=== PATIENT | female | born 1975 | race Caucasian/White ===

== ENCOUNTER 2021-08-18 18:25 | Emergency (ER) | payer SELFPAY ==
[2021-08-18 19:36] VITALS: BP 116/71; PULSE 83; RESP 19; TEMP 36.7; O2SAT 99; BMI 56.5
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
[2021-08-18 20:04] VITALS: BP 122/54; PULSE 80; RESP 20; TEMP 36.7; O2SAT 98
== END 2021-08-18 20:08 | disposition home or self-care (01) ==
PROVIDERS: Emergency Provider Student in an Organized Health Care Education/Training Program; PCP Family Medicine
DX: G89.29 Other chronic pain (principal); M25.522 Pain in left elbow; M54.2 Cervicalgia
CPT/HCPCS: 99281

== ENCOUNTER → 2021-09-22 07:40 | Outpatient (CLI) | payer BC, SELFPAY ==
[2021-09-22 08:12] LABS: Basophils % 0.6 % (0.1-2.0); Eosinophils # 0.2 K/mm3 (0.0-0.4); Eosinophils % 3.1 % (0.1-12.0); Hematocrit 41.2 % (37.0-47.0); Hemoglobin 13.7 g/dL (12.2-16.2); Lymphocytes # 1.8 K/mm3 (0.7-4.5); Mean Corpuscular HGB Conc 33.3 g/dL (31.8-35.4); Mean Corpuscular Hemoglobin 28.5 pg (27.0-31.2); Mean Corpuscular Volume 85.5 fl (81-99); Mean Platelet Volume 8.1 fl (7.4-10.4); Monocytes # 0.3 K/mm3 (0.1-1.0); Monocytes % 5.2 % (1.7-9.3); Neutrophils # 3.6 K/mm3 (1.8-7.8); Neutrophils % 60.1 % (37.0-80.0); Platelet Count 310 K/mm3 (142-424); Red Blood Count 4.82 M/mm3 (4.20-5.40); Red Cell Distribution Width 13.5 % (11.5-17.5); White Blood Count 5.9 K/mm3 (4.8-10.8)
[2021-09-22 10:07] LABS: Chloride 103 mmol/L (98-107); Sodium 142 mmol/L (136-145)
[2021-09-22 10:08] LABS: Potassium 4.1 mmoL/L (3.5-5.1)
[2021-09-22 10:10] LABS: Alanine Aminotransferase 11 U/L (12-78); Albumin Level 3.9 g/dl (3.5-5.0); Albumin/Globulin Ratio 1.3 (1.1-1.8); Alkaline Phosphatase 88 U/L (38-126); Anion Gap 13.1 mEq/L (5-15); Aspartate Amino Transferase 25 U/L (14-36); Bilirubin,Total 0.4 mg/dl (0.2-1.3); Blood Urea Nitrogen 12 mg/dl (7-17); Carbon Dioxide 30 mmol/L (22.0-30.0); Estimated Glomerular Filt Rate 77 ml/min (>60); GFR (African American) 93 ML/MIN (>60); Globulin 2.9 g/dL (1.3-3.2); Total Protein,Serum 6.8 g/dl (6.3-8.2)
[2021-09-22 10:11] LABS: Calcium 9.1 mg/dl (8.4-10.2); Chol/HDL Ratio 3.5 (1-3.5); Cholesterol 166 mg/dl (140-200); Glucose 112 mg/dl (74-100); HDL Cholesterol 47 mg/dl (40-60); Triglycerides 99 mg/dl (30-150); VLDL Cholesterol 20 mg/dL (0-40)
[2021-09-22 10:22] LABS: Direct LDL Cholesterol 95.66 mg/dL (100-129)
[2021-09-22 10:43] LABS: Thyroid Stimulating Hormone 1.94 uIU/mL (0.465-4.68)
[2021-09-22 11:10] LABS: Uric Acid 6.3 mg/dl (2.5-6.2)
== END ==
PROVIDERS: Visit Provider Family Medicine
DX: I10 Essential (primary) hypertension (principal)
CPT/HCPCS: 36415; 80053; 80061; 84443; 84550; 85025

== ENCOUNTER → 2021-09-24 09:44 | Outpatient (CLI) | payer BC, SELFPAY ==
[2021-09-24 10:15] LABS: Creatinine,Urine Random 104 mg/dL (Not Estab.)
[2021-09-24 10:18] LABS: Microalbumin/Creatinine Ratio 5.8
== END ==
PROVIDERS: Visit Provider Family Medicine
DX: I10 Essential (primary) hypertension (principal)
CPT/HCPCS: 82043; 82570

== ENCOUNTER → 2021-10-20 08:23 | Outpatient (CLI) | payer BC, SELFPAY ==
--- NOTE | 2021-10-20 08:27 | MM_ITS ---
PROCEDURE INFORMATION: Exam: MG Bilateral Screening 3D Mammography Exam date and time: 10/20/2021 8:27 AM Age: 46 years old Clinical indication: Encounter for screening mammogram for malignant neoplasm of breast TECHNIQUE: Imaging protocol: Bilateral screening tomosynthesis and 2D mammography including computer-aided detection (CAD) when performed. COMPARISON: No relevant prior studies available. FINDINGS: MAMMOGRAPHY: Breast composition: The breast tissue is composed of scattered areas of fibroglandular density. Mass: 0.4cm mass in the middle third of the left upper outer quadrant Architectural distortion: None. Calcifications: No suspicious calcifications. Asymmetric density: None. Skin thickening: None. Axillary adenopathy: None. IMPRESSION: Patient to be recalled for spot compression views of the left breast in the CC and MLO projections, a full 90 degree lateral view, and left breast ultrasound for further evaluation of a left breast mass. ASSESSMENT: BI-RADS Category 0: Incomplete- Need Additional Imaging Evaluation and/or Prior Mammograms for Comparison
== END ==
PROVIDERS: PCP Family Medicine; Visit Provider Family Medicine
DX: Z12.31 Encounter for screening mammogram for malignant neoplasm of breast (principal)
CPT/HCPCS: 77063; 77067

== ENCOUNTER → 2021-11-03 11:16 | Outpatient (CLI) | payer OTHER, SELFPAY | PROVIDERS: PCP Family Medicine; Visit Provider Nurse Practitioner | DX: U07.1 COVID-19 (principal) | CPT/HCPCS: C9803; U0003; U0005 ==

== ENCOUNTER → 2021-11-15 13:55 | Outpatient (CLI) | payer OTHER, SELFPAY ==
--- NOTE | 2021-11-15 14:02 | US_ITS ---
PROCEDURE INFORMATION: Exam: US Left Breast, Complete Exam date and time: 11/15/2021 2:02 PM Age: 46 years old Clinical indication: Patient recalled for further evaluation of a left breast mass TECHNIQUE: Imaging protocol: Complete ultrasound of all four quadrants of the Left breast and the retroareolar regions, including ultrasound of the axilla when performed. COMPARISON: MG MM DIG SCREENING MAMM BI W/CAD 10/20/2021 8:24 AM FINDINGS: Breast: Sonographic images of the left breast including the retroareolar region, all 4 quadrants and the axilla do not demonstrate any solid masses. 0.3 cm cyst in the 3 o'clock axis 3 cm from the nipple most closely corresponds to the mass on mammography. No architectural distortion or acoustical shadowing. No skin thickening or axillary adenopathy. It should be noted that there is a typographical error in the sonographic images, in that, image number 9 should be labeled left upper inner quadrant. IMPRESSION: Mass on screening mammography corresponds to underlying cystic change sonographically. There is no mammographic evidence of malignancy.Annual bilateral mammographic screening is recommended unless otherwise clinically indicated. ASSESSMENT: BI-RADS Category 2: Benign
--- NOTE | 2021-11-15 14:02 | MM_ITS ---
PROCEDURE INFORMATION: Exam: MG Left Diagnostic Breast Tomosynthesis Exam date and time: 11/15/2021 2:02 PM Age: 46 years old Clinical indication: Patient recalled for further evaluation of a left breast mass TECHNIQUE: Imaging protocol: Left Diagnostic tomosynthesis and 2D mammography including computer-aided detection (CAD) when performed. Unilateral or bilateral exam. COMPARISON: 1. MG MM DIG SCREENING MAMM BI W/CAD 10/20/2021 8:24 AM 2. MG MM scrn mammo BI 08/03/2020 3:40 PM FINDINGS: MAMMOGRAPHY: Digital diagnostic spot compression views of the left upper outer quadrant and 90 degree lateral view of the left breast demonstrates a persistent 0.4 cm mass without associated architectural distortion. Sonography performed 11/15/2021 demonstrated a benign cyst IMPRESSION: Mass on screening mammography corresponds to underlying cystic change sonographically. There is no mammographic evidence of malignancy.Annual bilateral mammographic screening is recommended unless otherwise clinically indicated. ASSESSMENT: BI-RADS Category 2: Benign
== END ==
PROVIDERS: PCP Family Medicine; Visit Provider Family Medicine
DX: R92.8 Other abnormal and inconclusive findings on diagnostic imaging of breast (principal)
CPT/HCPCS: 76641; 77061; 77065; G0279

== ENCOUNTER → 2021-12-21 08:14 | Outpatient (CLI) | payer OTHER, SELFPAY | PROVIDERS: PCP Family Medicine; Visit Provider Nurse Practitioner | DX: U07.1 COVID-19 (principal) | CPT/HCPCS: C9803; U0003; U0005 ==

== ENCOUNTER 2022-01-16 14:43 | Emergency (ER) | payer OTHER, SELFPAY ==
[2022-01-16 16:20] VITALS: BP 141/89; PULSE 84; RESP 19; TEMP 36.7; O2SAT 97; BMI 48.6
--- NOTE | 2022-01-16 16:41 | HMH.EDUTC ---
[facility] [place] Disposition Clinical Impression: Sinusitis Qualifiers: Sinusitis location: maxillary Chronicity: acute Recurrence: non-recurrent Qualified Code(s): J01.00 - Acute maxillary sinusitis, unspecified Disposition: Home, Self-Care Condition on Discharge: Good Instructions: DI for Sinusitis Additional Instructions: Start antibiotic patient to take as ordered for a full length of time even if you feel better. Sinus infections do not get better overnight. It may take 2-3 days to notice much improvement so be sure to use conservative measures as discussed for symptoms. Flonase 1 spray each nostril daily to help with nasal congestion, sinus and ear pressure/information Increase fluids Humidifier/vaporizer as needed Tylenol and ibuprofen as needed for fever or pain. If symptoms do not improve or get worse return or be seen in the ER Follow-up with primary care this week Prescriptions: cephALEXin [Cephalexin 500mg Tab] 500 mg PO BID 7 Days #14 tab Transmission Status: Pending to [id number] Fluticasone Propionate [Flonase 50mcg nasal spray 16gm] 1 spr NS DAILY 14 Days #9.9 ml Transmission Status: Pending to [id number] Referrals: David Snell MD [Primary Care Provider] - Time of Disposition: 16:50 Medical Decision Making - Melvin Inquiry Pt receiving controlled substance: No Vital Signs: 01/16/22 16:20 Temperature 98.0 F Temperature Source Oral Pulse Rate [Right Brachial] 84 Respiratory Rate 19 Blood Pressure [Right Arm] 141/89 H Blood Pressure Mean [Right Arm] 106 Blood Pressure Source [Right Arm] Automatic Cuff Blood Pressure Position [Right Arm] Sitting 02 Sat by Pulse Oximetry 97 Oxygen Delivery Method Room Air [facility] [place] HPI - General Chief complaint: Urgent Treatment [facility] Stated complaint: Sore throat, sinus pressure, congestion Time Seen by Provider: 01/16/22 16:41 Mode of Arrival: Ambulatory Source of Information: Patient Limitations: No Limitations Description of Symptoms (Recalled from Triage Doc. by RN): PATIENT C/O CONGESTION AND SINUS PRESSURE/PAIN X 3 DAYS HEENT Symptoms (Recalled from RN notes): Yes Resp Symptoms (Recalled from RN notes): No Skin Symptoms (Recalled from RN notes): No MS Symptoms (Recalled from RN notes): No Functional Status (Recalled from RN notes): WNL - History of Present Illness Provider Complaint: 47 yr old female presents for green nasal drainage, sinus pressure, sinus pain and sore throat. - Related Data Home Medications Medication Instructions Recorded Confirmed Hydroxychloroquine Sulfate 100 mg PO BID 08/18/21 08/18/21 Previous Rx's Medication Instructions Recorded methocarbamoL [Methocarbamol] 750 mg PO TID #20 tab 08/18/21 Fluticasone Propionate [Flonase 1 spr NS DAILY 14 Days #9.9 ml 01/16/22 50mcg nasal spray 16gm] cephALEXin [Cephalexin 500mg Tab] 500 mg PO BID 7 Days #14 tab 01/16/22 Allergies Allergy/AdvReac Type Severity Reaction Status Date / Time Yeast Allergy Verified 08/18/21 19:42 - Worker's Comp Is this a Worker's Comp case?: No [facility] History - Hepatitis A Screen Drug use history?: No High risk sexual behaviors?: No History of sexually transmitted infection?: No Currently employed?: No Childcare worker?: No Do you have indoor plumbing?: Yes Do you have electricity?: Yes Attestation statement:: This patient has been screened for Hepatitis A risk factors. I have reviewed the patient's past medical history: Yes ROS Obtained: Yes Systems reviewed as appropriate & no additional complaints - Constitutional Constitutional: Reports system reviewed and no additional complaints, except as docu, Denies fever(s) - Eyes Eyes: Reports system reviewed and no additional complaints, except as docu, Denies dry eyes - ENT Ears, Nose, Mouth, and Throat: Reports system reviewed and no additional complaints, except as docu, Reports nasal congestion, Reports nasal discharge, Reports sinus pain, Reports sinus p
[2022-01-16 16:55] VITALS: BP 141/89; PULSE 84; RESP 19; TEMP 36.7; O2SAT 97
== END 2022-01-16 17:01 | disposition home or self-care (01) ==
PROVIDERS: Emergency Provider Nurse Practitioner Family; PCP Family Medicine
DX: J01.00 Acute maxillary sinusitis, unspecified (principal); J02.9 Acute pharyngitis, unspecified; Z79.51 Long term (current) use of inhaled steroids; Z79.899 Other long term (current) drug therapy; Z91.048 Other nonmedicinal substance allergy status
CPT/HCPCS: 99213; G0463

== ENCOUNTER 2022-01-25 09:02 | Emergency (ER) | payer OTHER, SELFPAY ==
[2022-01-25 09:26] VITALS: BP 139/84; PULSE 101; RESP 19; TEMP 36.8; O2SAT 99; BMI 51.0
[2022-01-25 09:37] LABS: UTC Influenza A Antigen Positive (Negative); UTC Influenza B Antigen Negative (Negative)
--- NOTE | 2022-01-25 09:52 | HMH.EDUTC ---
[facility] [place] Disposition Clinical Impression: Influenza Disposition: Home, Self-Care Condition on Discharge: Good Instructions: How to Avoid a Cold or Flu, Influenza, DI for Influenza -- Adult Additional Instructions: ? Start Tamiflu today if you are going to take it. Discussed risk and possible benefits. ? Too late to start Tamiflu. Most effective when started within 48 hours of symptoms onset ? Lots of rest ? Increase Fluids water, Gatorade, powerade, pedialyte,if infant/toddler/child ? Alternate Tylenol and / or ibuprofen as discussed for fever, aches, chills Follow up IMMEDIATELY with your family doctor for new or worsening Symptoms OR no noticeable improvement over the next 48-72 hours, 911 for difficulty or breathing ? You or your child area contagious until no fever, aches, chills for 24 hours with medication for symptoms ? Help Prevent the spread of influenza: ? Wash your hands often. Use soap and water. Wash your hands after you use the bathroom, change a child's diapers, or sneeze. Wash your hands before you prepare or eat food. Use gel hand cleanser that has 60% alcohol, when soap and water are not available. Do not touch your eyes, nose, or mouth unless you have washed your hands first. ? Cover your mouth when you sneeze or cough. Cough into a tissue or the bend of your arm. If you use a tissue, throw it away immediately and wash your hands. ? Clean shared items with a germ-killing spinneret cleaner. Clean table surfaces, doorknobs, and light switches. Do not share towels, silverware, and dishes with people who are sick. Wash bed sheets, towels, silverware, and dishes with soap and water. ? Wear a mask over your mouth and nose if you are sick. The face mask may help protect others from becoming infected with the flu. Wear the mask when in common areas of your home or if you seek care with a healthcare provider. ? Stay away from others if you are sick. Stay at home until 24 hours after your fever and symptoms are gone. Prescriptions: Oseltamivir Phosphate [Tamiflu 75mg Capsule] 75 mg PO BID #10 cap Transmission Status: Pending to [id number] Referrals: David Snell MD [Primary Care Provider] - As needed Time of Disposition: 10:29 Medical Decision Making - Melvin Inquiry Pt receiving controlled substance: No Melvin was queried for this patient: No Vital Signs: 01/25/22 09:26 Temperature 98.3 F Temperature Source Oral Pulse Rate [Left] 101 H Respiratory Rate 19 Blood Pressure [Right Arm] 139/84 Blood Pressure Mean [Right Arm] 102 02 Sat by Pulse Oximetry 99 - Lab Data Lab results reviewed: Yes: I reviewed the patient's lab results. Lab Results 01/25/22 09:19: Influenza Type A Ag Positive A, Influenza Type B Ag Negative 01/25/22 09:57: Group A Strep Rapid Negative Orders (Tests/Meds): ORDERS Category Date Time Status Strep Screen Confirmation Stat Micro 01/25/22 09:57 Received [facility] [place] HPI - General Stated complaint: sore throat, chills, bodyaches, congestion Time Seen by Provider: 01/25/22 09:52 Mode of Arrival: Ambulatory Source of Information: Patient Limitations: No Limitations Description of Symptoms (Recalled from Triage Doc. by RN): pt c/o a sore throat, congestion, body aches, and chills x3 days. HEENT Symptoms (Recalled from RN notes): Yes Resp Symptoms (Recalled from RN notes): No Skin Symptoms (Recalled from RN notes): No MS Symptoms (Recalled from RN notes): No Functional Status (Recalled from RN notes): wnl - History of Present Illness Provider Complaint: Patient states that she has not felt well for about 3 days States that she has been having fever, chills and body aches along with sore throat States that today she was still feeling bad so she wanted to come in and get tested for strep and flu - Related Data Home Medications Medication Instructions Recorded Confirmed Hydroxychloroquine Sulfate 100 mg PO BID 08/18/21 08/18/21 Previous Rx's Medication Instructions
[2022-01-25 10:24] LABS: Strep Scrn Group A (Rapid) Negative (Negative)
[2022-01-25 10:52] VITALS: BP 139/84; PULSE 101; RESP 19; TEMP 36.8
== END 2022-01-25 10:53 | disposition home or self-care (01) ==
PROVIDERS: Emergency Provider Nurse Practitioner; PCP Family Medicine
DX: J10.1 Influenza due to other identified influenza virus with other respiratory manifestations (principal)
CPT/HCPCS: 87430; 87804; 99212; G0463

== ENCOUNTER 2022-03-16 14:21 | Emergency (ER) | payer BC, SELFPAY ==
[2022-03-16 14:22] VITALS: BP 135/66; PULSE 84; RESP 18; TEMP 36.8; O2SAT 96; BMI 51.6
--- NOTE | 2022-03-16 14:25 | PC.NURSE ---
feder[facility] hands cleaned with hibiclens upon arrival to ED
[2022-03-16 15:15] VITALS: BMI 51.6
--- NOTE | 2022-03-16 16:32 | XR_ITS ---
PROCEDURE INFORMATION: Exam: XR Left Hand Exam date and time: 03/16/2022 4:32 PM Age: 47 years old Clinical indication: Injury or trauma; Other: Dog bite; Puncture; Hand; Left; Additional info: Assess for retained fb TECHNIQUE: Imaging protocol: XR Left hand. Views: 3 or more views. COMPARISON: No relevant prior studies available. FINDINGS: Bones/joints: Osseous anatomic alignment is well preserved. No acutely displaced fracture or dislocation. Joint spaces are well preserved. Soft tissues: There is soft tissue swelling. There is no evidence of a radio-opaque foreign body. IMPRESSION: 1. No acute skeletal pathology. 2. No retained radiopaque foreign bodies.
--- NOTE | 2022-03-16 16:32 | XR_ITS ---
PROCEDURE INFORMATION: Exam: XR Right Hand Exam date and time: 03/16/2022 4:31 PM Age: 47 years old Clinical indication: Injury or trauma; Other: Dog bite; Puncture; Hand; Right; Additional info: Assess for fb TECHNIQUE: Imaging protocol: XR Right hand. Views: 3 or more views. COMPARISON: No relevant prior studies available. FINDINGS: Bones/joints: Osseous anatomic alignment is well preserved. No acutely displaced fracture or dislocation. Joint spaces are well preserved. Soft tissues: There is soft tissue swelling. There is no evidence of a radio-opaque foreign body. IMPRESSION: 1. No acute skeletal pathology. 2. No retained radiopaque foreign bodies.
[2022-03-16 18:01] VITALS: BP 111/68; PULSE 73; O2SAT 99
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
[2022-03-16 18:30] VITALS: BP 107/63; PULSE 72; O2SAT 100
[2022-03-16 18:47] VITALS: BP 132/74; PULSE 78; RESP 16; TEMP 36.6; O2SAT 98
== END 2022-03-16 18:49 | disposition home or self-care (01) ==
PROVIDERS: Emergency Provider Emergency Medicine; PCP Family Medicine
DX: S61.431A Puncture wound without foreign body of right hand, initial encounter (principal); S61.235A Puncture wound without foreign body of left ring finger without damage to nail, initial encounter; W54.0XXA Bitten by dog, initial encounter; Z23 Encounter for immunization
CPT/HCPCS: 73130; 90715; 99283

== ENCOUNTER → 2022-11-21 07:59 | Outpatient (CLI) | payer BC, SELFPAY ==
--- NOTE | 2022-11-21 08:06 | MM_ITS ---
PROCEDURE INFORMATION: Exam: MG Bilateral Screening 3D Mammography Exam date and time: 11/21/2022 7:57 AM Age: 47 years old Clinical indication: Screening examination TECHNIQUE: Imaging protocol: Bilateral Screening tomosynthesis and 2D mammography including computer-aided detection (CAD) when performed. COMPARISON: 1. MG MM DIG MAMM DX UNILAT LT CAD 11/15/2021 2:03 PM 2. MG MM DIG SCREENING MAMM BI W/CAD 10/20/2021 8:24 AM FINDINGS: MAMMOGRAPHY: Breast composition: The breasts are almost entirely fatty. Mass: None. Architectural distortion: None. Calcifications: No suspicious calcifications. Asymmetric density: None. Skin thickening: None. Axillary adenopathy: None. IMPRESSION: No mammographic evidence of malignancy. Annual screening is recommended unless otherwise clinically indicated. ASSESSMENT: BI-RADS Category 1: Negative
== END ==
PROVIDERS: PCP Family Medicine; Visit Provider Family Medicine
DX: Z12.31 Encounter for screening mammogram for malignant neoplasm of breast (principal)
CPT/HCPCS: 77063; 77067

== ENCOUNTER 2023-01-30 08:04 | Emergency (ER) | payer BC, SELFPAY ==
[2023-01-30 08:20] VITALS: BP 140/91; PULSE 88; RESP 20; TEMP 37.2; O2SAT 95; BMI 51.5
--- NOTE | 2023-01-30 08:33 | EXP.UTC ---
Discharge Plan Disposition Patient Disposition: Home, Self-Care Condition: Good Prescriptions Prescriptions: New benzonatate [benzonatate] 100 mg capsule 100 mg PO TIDP PRN (Reason: Cough) Qty: 30 0RF methylprednisolone 4 mg Tablets,Dose Pack 4 mg PO DIRECTED Qty: 21 0RF amoxicillin-pot clavulanate 875-125 mg Tablet 1 tab PO Q12H Qty: 20 0RF fluticasone propionate [fluticasone propionate] 50 mcg/actuation spray,suspension 2 spr intranasal DAILY 30 Days Qty: 120 5RF No Action citalopram 10 mg tablet 10 mg PO DAILY losartan 25 mg tablet 25 mg PO DAILY hydroxychloroquine 100 mg tablet 200 mg PO BID Referrals Follow up/Referrals: David Snell MD [Primary Care Provider] - See instructions Activity Restrictions/Add. Instructions Additional Instructions/Restrictions: Drink plenty of fluids. Take tylenol or ibuprofen for pain or fever. Take the medications as directed. Follow up with your regular doctor. GO TO THE ER FOR ANY WORSENING SYMPTOMS Don't start the oral steroids until tomorrow, since you had the shot here today. Clinical Impressions Clinical Impression: Sinusitis Stand Alone Forms Stand Alone Forms: Work/School Release Instructions Patient Instructions: Sinusitis, DI for Sinusitis Discharge ED Provider: Mike Laird [facility] General Stated complaint: Cough,Congestion Mode of Arrival: Ambulatory Source of Information: Patient Limitations: No Limitations Time Seen by Provider: 01/30/23 08:33 Description of Symptoms (Recalled from Triage Doc. by RN): allergy symptoms, and cold HEENT Symptoms (Recalled from RN notes): Yes Resp Symptoms (Recalled from RN notes): No Skin Symptoms (Recalled from RN notes): No MS Symptoms (Recalled from RN notes): No Functional Status (Recalled from RN notes): n/a History of Present Illness Provider Complaint: She states that for the past 1 week she has had worsening sinus congestion, sinus drainage and sinus pressure. Related Data Home Medications Medication Instructions Recorded Confirmed citalopram 10 mg tablet 10 mg PO DAILY . 06/23/22 01/30/23 hydroxychloroquine 100 mg tablet 200 mg PO BID . 06/23/22 01/30/23 losartan 25 mg tablet 25 mg PO DAILY . 06/23/22 01/30/23 Previous Rx's Medication Instructions Recorded amoxicillin 875 mg-potassium 1 tab PO Q12H #20 tabs 01/30/23 clavulanate 125 mg tablet benzonatate 100 mg capsule 100 mg PO TIDP PRN Cough #30 caps 01/30/23 fluticasone propionate 50 2 spr intranasal DAILY 30 days 01/30/23 mcg/actuation nasal #120 ea spray,suspension methylprednisolone 4 mg tablets in 4 mg PO DIRECTED #21 tabs 01/30/23 a dose pack Allergies Allergy/AdvReac Type Severity Reaction Status Date / Time Yeast Allergy Verified 01/30/23 08:34 Worker's Comp Is this a Worker's Comp case?: No [facility] Disclaimer: The information contained in this section may have been updated after the patient was seen, as this information can be updated by other users. Medical History Depression Surgical History Hx of section Family History Grandmother Diabetes Social History Smoking Status: Never smoker alcohol intake: never current occupational status: employed Travel in the last 8 weeks: None ROS Obtained: Yes All systems reviewed & no additional complaints except as documented Constitutional Constitutional: Reports poor appetite Eyes Eyes: Reports system reviewed and no additional complaints, except as documented ENT Ears, Nose, Mouth, and Throat: Reports as per HPI Cardiovascular Cardiovascular: Reports system reviewed and no additional complaints, except as documented and Denies chest pain Respiratory Respiratory: Denies
[2023-01-30 09:03] VITALS: BP 140/91; PULSE 88; RESP 20; TEMP 37.2; O2SAT 95
== END 2023-01-30 09:02 | disposition home or self-care (01) ==
PROVIDERS: Emergency Provider Nurse Practitioner Family; PCP Family Medicine
DX: J01.90 Acute sinusitis, unspecified (principal); R05.1 Acute cough
CPT/HCPCS: 99212; 99214; G0463

== ENCOUNTER 2024-03-13 07:55 | Outpatient (CLI) | payer BC, SELFPAY ==
--- NOTE | 2024-03-13 08:04 | MM_ITS ---
PROCEDURE INFORMATION: Exam: MG Bilateral Screening 3D Mammography Exam date and time: 03/13/2024 7:52 AM Age: 49 years old Clinical indication: Screening examination TECHNIQUE: Imaging protocol: Bilateral Screening tomosynthesis and 2D mammography including computer-aided detection (CAD) when performed. COMPARISON: 1. MG MM DIG SCREENING MAMM BI W/CAD 11/21/2022 7:57 AM 2. MG MM DIG MAMM DX UNILAT LT CAD 11/15/2021 2:03 PM FINDINGS: MAMMOGRAPHY: Breast composition: The breasts are almost entirely fatty. Mass: None. Architectural distortion: None. Calcifications: No suspicious calcifications. Asymmetric density: None. Skin thickening: None. Axillary adenopathy: None. IMPRESSION: No mammographic evidence of malignancy. Annual screening is recommended unless otherwise clinically indicated. ASSESSMENT: BI-RADS Category 1: Negative
== END 2024-03-13 23:59 | disposition home or self-care (01) ==
LOC: RAD 07:56
PROVIDERS: PCP Family Medicine; Visit Provider Family Medicine
DX: Z12.31 Encounter for screening mammogram for malignant neoplasm of breast (principal)
CPT/HCPCS: 77063; 77067

== ENCOUNTER 2025-01-01 07:42 | Day surgery (SDC) | payer BC, SELFPAY ==
[2024-12-31 10:08] VITALS: BMI 45.0
[2025-01-01] MEDS: LACTATED RINGERS 1000ML 1,000 ML 50 ML IV (08:19)
[2025-01-01 08:27] VITALS: BP 121/71; PULSE 92; RESP 18; TEMP 36.3; O2SAT 97
--- NOTE | 2025-01-01 09:04 | P.HP_ITS ---
History of Present Illness *Admission Date: 01/01/25 *Reason for visit:: Screening *History of present illness: Mrs. Aldana is a 49-year-old female who is here for screening colonoscopy. The examination is deemed medically necessary for screening colonoscopy. The patient has been seen, interviewed and examined prior to the procedure by both myself and the anesthesia provider. [facility] Disclaimer: The information contained in this section may have been updated after the patient was seen, as this information can be updated by other users. Medical History Depression Surgical History Hx of section Family History Grandmother Diabetes Social History Smoking Status: Never smoker alcohol intake: never current occupational status: employed Travel in the last 8 weeks: None Have you lived/traveled outside US in past 30 days?: No Contact w/someone who lives/traveled outside US past 30 days?: No Exposure to someone with infectious disease in past 14 days?: No Do you have a fever (greater than 100.4 F or 38 C)?: No Have you tested positive for COVID-19: No Exposed to someone with COVID-19 in past 14 days?: No Do you have a sore throat?: No Do you have a cough?: No Do you have any weakness?: No Do you have any diarrhea?: No Are you experiencing any unusual bleeding?: No Do you have any muscle aches/pain?: No Do you have any abdominal pain?: No Are you experiencing loss of taste or smell?: No Other Medical History Have you received the Flu Vaccine for this season: No Have you received the Pneumonia Vaccine: No Review of Systems Review of Systems Review of systems (narrative): Negative *Cardiovascular Comments: Negative *Gastrointestinal Comments: Negative *Genitourinary Comments: Negative *Musculoskeletal Comments: Negative *Neurologic Comments: Negative Meds Home Medications and Allergies Home Medications ?Medication ?Instructions ?Recorded ?Confirmed ?Type hydroxychloroquine 100 mg tablet 200 mg PO BID . 06/23/22 01/01/25 History losartan 25 mg tablet 25 mg PO DAILY . 06/23/22 01/01/25 History duloxetine 20 mg capsule,delayed 20 mg PO DAILY 01/01/25 01/01/25 History release sprinkle semaglutide (weight loss) 1 mg/0.5 1 mg SQ Q7D 01/01/25 01/01/25 History mL subcutaneous pen injector (Wegovy) New Prescriptions to Start Prescriptions: Allergies Allergy/AdvReac Type Severity Reaction Status Date / Time Yeast Allergy Rash Verified 01/01/25 08:23 Exam Data for Last 24 hours Vital signs and Labs for Last 24 Hours: Temp Pulse Resp BP Pulse Ox O2 Del Method 97.4 F L 92 H 18 121/71 97 Room Air 01/01/25 08:27 01/01/25 08:27 01/01/25 08:27 01/01/25 08:27 01/01/25 08:27 01/01/25 08:27 I & O for Last 24 hours: Intake & Output 12/29/24 12/30/24 12/31/24 01/01/25 23:59 23:59 23:59 23:59 Weight 279 lb *Routine HEENT Exam Head: Present normocephalic Eye: Present EOMI and PERRL ENT: Present mucous membranes moist *Routine Neck Exam Neck: Present supple *Routine Respiratory Exam Respiratory: Present CTA bilaterally *Routine Cardiovascular Exam Cardiovascular: Present RRR *Routine Abdominal Exam Abdominal: Present soft and normoactive bowel sounds; Absent tenderness *Routine Rectal Exam Rectal:: deferred *Routine Genitalia Exam Genitalia:: deferred *Routine Extremities Exam Extremities: Absent cyanosis, clubbing or edema *Routine Skin Exam Skin: Present warm; Absent rash *Routine Neurological Exam Neurological: Present alert and oriented X3 Assessment and Plan *Assessment and plan (1) Screening for colon cancer: Status: Acute Category: Medical Code(s): Z12.11 - Encounter for screening for malignant neoplasm of colon Plan A/P: 1. Screening for colon cancer is the preprocedural diagnosis. The patient will be anesthetized/sedated using MAC sedation. The patient has been seen and examined. Cardiac and lung assessment prior to the examination is stable. Proceed with planned screening colonoscopy
[2025-01-01 09:10] VITALS: O2SAT 100
--- NOTE | 2025-01-01 09:18 | HMH.PROCNOTE ---
[facility] Procedure Note Date: 01/01/25 Time: 09:31 Procedure Note:: Colonoscopy Procedure Report: Colonoscopy Endoscopist: Frank Arevalo II, MD Referring physician: David Snell MD Date of Procedure: January 01, 2025 Equipment: Olympus 190 variable stiffness pediatric colonoscope Sedation: MAC sedation Indication: Mrs. Aldana is a 49-year-old female who is here for initial screening colonoscopy. She reports no abdominal pain, weight loss, change in her bowel habits or rectal bleeding. She reports no family history of colon cancer. The patient's twin brother had a ruptured colon (presumably secondary to perforated diverticulitis). The patient will occasionally get some functional diarrhea with certain foods. Procedure: Prior to the procedure, a history and physical exam was performed, and patient's medications and allergies were reviewed. The risks, benefits and alternatives of the sedation and procedure were discussed with the patient. All questions were answered and informed consent was obtained. The patient was brought to the procedure room. Patient identification and proposed procedure were verified by the physician and the nurse. The patient was placed in a left lateral decubitus position and the scope was passed under direct vision. Throughout the procedure, the patient's blood pressure, pulse, and oxygen saturations were monitored continuously. The colonoscopy was accomplished without difficulty. The patient tolerated the procedure well. Findings: On digital rectal examination there was normal rectal tone. There were no external hemorrhoids. The colonoscope was introduced through the anal canal to the rectum and advanced to the cecum. The ileocecal valve and appendiceal orifice were identified. The scope was advanced a short distance into the ileum which appeared grossly normal. The scope was then withdrawn into the colon. The cecum, ascending, transverse, descending, sigmoid and rectum were grossly normal. There were no mucosal abnormalities identified. Upon retroflexion within the rectum there were grade 1-2 internal hemorrhoids. The preparation was excellent throughout with [place] Preparation Score of 9. The cecal time was 12 minutes. Impression: 1. Normal colonoscopy with intubation of the terminal ileum Plan: The patient will not require surveillance colonoscopy again for 10 years by ACS guidelines.
[2025-01-01 09:35] VITALS: BP 126/81; PULSE 71; RESP 16; TEMP 36.4; O2SAT 100
[2025-01-01 09:45] VITALS: BP 147/82; PULSE 73; RESP 16; O2SAT 100
[2025-01-01 09:49] LABS: HCG Qualitative, Serum Negative (Negative)
[2025-01-01 09:55] VITALS: BP 135/81; PULSE 68; RESP 18; O2SAT 100
--- NOTE | 2025-01-01 10:04 | EXP.ANES.CKL ---
[facility] Disclaimer: The information contained in this section may have been updated after the patient was seen, as this information can be updated by other users. Medical History Depression Surgical History Hx of section Family History Grandmother Diabetes Social History Smoking Status: Never smoker alcohol intake: never substance use type: denies use current occupational status: employed Travel in the last 8 weeks: None [facility] Anesthesia Checklist Patient Identification Patient Identification: Verbal (Name & ) Structural Data Admitted From: Home Planned Operative Procedure/s: colonoscopy Consent for Planned Operative Procedure(s) Verified: Yes NPO Status Verified Time NPO: 00:00 Airway Assessment Mallampati Score:: Class II C-Spine Mobility Assessed: Yes TMJ Mobility Assessed: Yes Dentition: Good Dentition Neurological Assessment Level of Consciousness: Awake, Alert and Appropriate Anesthesia Plan Anesthesia Risk discussed: Yes Anesthesia Plan: Verified ASA Class: II Anesthesia Type: MAC
[2025-01-01 10:05] VITALS: BP 124/81; PULSE 81; RESP 18; O2SAT 100
== END 2025-01-01 10:18 | disposition home or self-care (01) ==
PROVIDERS: PCP Family Medicine; Visit Provider Internal Medicine Gastroenterology
PROC: 0DJD8ZZ Inspection of Lower Intestinal Tract, Via Natural or Artificial Opening Endoscopic (ICD-10-PCS; CPT 45378; principal; 2025-01-01 09:30)
DX: Z12.11 Encounter for screening for malignant neoplasm of colon (principal); K64.8 Other hemorrhoids
CPT/HCPCS: 45378; 84703; J7120

== ENCOUNTER 2025-03-26 07:51 | Outpatient (CLI) | payer BC, SELFPAY ==
--- NOTE | 2025-03-26 07:53 | MM_ITS ---
PROCEDURE INFORMATION: Exam: MG Bilateral Screening 3D Mammography Exam date and time: 03/26/2025 7:58 AM Age: 50 years old Clinical indication: Screening examination TECHNIQUE: Imaging protocol: Bilateral Screening tomosynthesis and 2D mammography including computer-aided detection (CAD) when performed. COMPARISON: 1. MG MM DIG SCREENING MAMM BI W/CAD 03/13/2024 7:52 AM 2. MG MM DIG SCREENING MAMM BI W/CAD 11/21/2022 7:57 AM FINDINGS: MAMMOGRAPHY: Breast composition: There are scattered areas of fibroglandular density. Mass: No suspicious masses. Architectural distortion: None. Calcifications: No suspicious calcifications. Asymmetric density: None. Skin thickening: None. Axillary adenopathy: None. IMPRESSION: No mammographic evidence of malignancy. Annual screening is recommended unless otherwise clinically indicated. ASSESSMENT: BI-RADS Category 1: Negative.
== END 2025-03-26 23:59 | disposition home or self-care (01) ==
LOC: RAD 07:52
PROVIDERS: PCP Family Medicine; Visit Provider Family Medicine
DX: Z12.31 Encounter for screening mammogram for malignant neoplasm of breast (principal); R92.323 Mammographic fibroglandular density, bilateral breasts
CPT/HCPCS: 77063; 77067

== ENCOUNTER 2025-10-02 09:56 | Outpatient (CLI) | payer BC, SELFPAY ==
--- OUTSIDE RECORDS SUMMARY | 2024-06-14 05:00 | XMS_ITS ---
Author Organization [facility] Address [address] [place] [address] [address] [place] [id number] Care Team Providers Care Barrel Drainer Name Role Phone David Snell Unavailable [phone] REASON FOR VISIT 4 week checkup Encounters Encounter Location Date Provider Diagnosis [facility] [address] [place] [id number] 06/14/2024 David Snell Plan Of Treatment Next Appt Details Provider Name:David Matson ry, 03/11/2026 09:00:00 AM, [address], [address], [place], [id number], Progress Notes * VINCE CHAVEZB:1975 (50 yo F)Acc No.[id number]:06/14/2024 Progress Notes Patient: JONATHAN JOSE Provider: Catrachita Snell M.D. :1975 A ge:49 Y S ex:Female Date:06/14/2024 Address:[address] [place] [address] , [id number] Subjective: * Chief Complaints: * 1 . 4 week checkup. * Medical History: Objective: * Vitals: Assessment: Plan: * Treatment: * Images: Billing Information: * Visit Code: * Procedure Codes: * Electronic signature of Deja Snell MD on 10/05/2025 at 09:59 AM EST Sign off status: Pending * Provider: Catrachita Snell M.D. Date: 0 06/14/2024 Generated for Printi ng/Faalleyg/eTransmitting on: 1 12/06/2024 09:59 AM EST
--- OUTSIDE RECORDS SUMMARY | 2024-08-07 05:00 | XMS_ITS ---
[facility] Address [address] [facility] [address] [facility] [address] [place] [id number] Care Team Providers Care Laser/Electro Optics Technician Name Role Phone David Snell Unavailable [phone] Allergies No Known Allergies Results Component Value Reference Range Notes P-Basic Metabolic Panel (BMP ) Reviewed date:08/08/2024 09:09:13 AM Interpretation:Normal Performing Lab: Notes/Report: Test performed by [facility] [address] [place], [place] [address] [place] , [address], [place] [address] Arvind See MD, Math Professor CLIA: [id number] Sodium 143 135-145 mmol/L Potassium 4.6 3.5-5.3 mmol/L Chloride 105 97-108 mmol/L CO2 28 22-32 mmol/L Glucose 89 65-99 mg/dL BUN 12 6-20 mg/dL Creatinine 0.78 0.50-1.00 mg/dL Calcium 9.3 8.6-10.4 mg/dL eGFR by Creatinine 93 >59 mL/min/1.73m2 P-Lipid Panel Reviewed date:08/08/2024 09:09:13 AM Interpretation:Normal Performing Lab: Notes/Report: Test performed by [facility] [address] [place], [place] [address] [place] , [address], [place] [address] Arvind See MD, Math Professor CLIA: [id number] Cholesterol 165 <200 mg/dL Triglycerides 71 <150 mg/dL HDL Cholesterol 59 >39 mg/dL Cholesterol / HDL Ratio 2.80 0.00-4.44 Ratio Non-HDL Cholesterol 106 <130 mg/dL LDL Cholesterol (Calculation) 92 <130 mg/dL LDL Cholesterol Levels* Less than 100 mg/dL Optimal 100 to 129 mg/dL Near Optimal/ Above Optimal 130 to 159 mg/dL Borderline High 160 to 189 mg/dL High 190 mg/dL and above Very High * Categories as recommended by the 2004 ATPIII guidelines LDL/HDL Ratio 1.6 <3.3 Ratio Test Date: 08/07/2024 LDL Results: 92 Units: mg/dL % Change: - LDL Cholesterol Patient History P-TSH reflex to FT4 Reviewed date:08/08/2024 09:09:13 AM Interpretation:Normal Performing Lab: Notes/Report: Test performed by [facility] [address] [place] [address] [place] [address] Arvind See MD, Math Professor CLIA: [id number] TSH reflex to FT4 1.34 0.43-5.25 mU/L P-Microalbumin/Creatinine, R andom Urine Sample Reviewed date:08/08/2024 09:09:13 AM Interpretation:Normal Performing Lab: Notes/Report: Test performed by [facility] [address] [place] [address] Arvind See MD, Math Professor CLIA: [id number] Albumin/Creatinine Ratio, Urine 8 0-30 ug/m g Microalbumin, Urine, Random 0.9 Creatinine, Urine 116.7 P-Vitamin D 25-Hydroxy Reviewed date:08/08/2024 09:09:13 AM Interpretation:Normal Performing Lab: Notes/Report: Test performed by [facility], [place] [employer] [facility] , [address], [place] [address] Arvind See MD, Math Professor CLIA: [id number] Vitamin D 25-Hydroxy 53.5 30.0-100.0 ng/mL Interpretation of Vitamin D 25 OH: < 20 ng/mL - Deficiency 20 - 29 ng/mL - Insufficiency 30 - 100 ng/mL - Sufficiency > 100 ng/mL - Super-therapeutic- toxicity may occur above this level. Clinical correlation required. REASON FOR VISIT 5 month check Medications Medication SIG (Take, Route, Frequency, Duration) Notes Start Date End Date Status Vitamin D3 125 MCG (5000 UT) 1 cap(s) or ally once a day; Duration: 30 day(s) Active Levocetirizine Dihydrochloride 5 MG 1 tablet in the evening Orally Once a day; Duration: 90 days Active Hydroxychloroquine Sulfate 200 MG 1 tab(s) orally bid Active Fluticasone Propionate 50 MCG/ACT 1 spray in each nostril Nasally Once a day 07/12/2023 Active Losartan Potassium 25 MG 1 tab(s) orally once a day; Duration: 90 days Active Wegovy 2.4 MG/0.75ML inject 1 pen inject or subcutaneously once weekly Active DULoxetine HCl 60 MG 1 capsule Orally On ce a day; Duration: 90 days 08/07/2024 Active Immunizations Vaccine Route Administration Date Status Comme nts Fluzone Quad (6months&older) IM Intramuscular 08/07/2024 P ending Problems Problem Type SNOMED Code ICD Code Onset Dates Problem Status W/U Status Risk Notes Problem Vitamin D deficiency (41551962) Vitamin D deficiency (E55.9) Active confirmed Vital Signs Blood pressure systolic 130 mm Hg 08/07/20 24 Blood pressure diastolic 82 mm Hg 024 Heart Rate 76 /min 08/07/2024 Height 66 in 08/07/2024 Weight 285.8 lbs 08/07/2024 BMI 46.12 kg/m2 08/07/2024 Encounters Encounter Location Date Provider Diagnosis [facility] [address] [place], [place] [id number] 08/07/2024 David Hazlehurst Primary hypertension I10 ; Vitamin D deficiency E55.9 ; Depressive disorder F32.9 ; Seasonal allergic rhinitis, unspecified trigger J30.2 ; Morbid obesity E66.01 and Encounter for immunization Z23 Assessments Encounter Date Diagnosis (ICD Code) Assessment Notes Treatment Notes Treatment Clinical Notes Section Notes 08/07/2024 Primary hypertension (ICD-10 - I10) 08/07/2024 Vitamin D deficiency (ICD-10 - E55.9) 08/07/2024 Depressive disorder (ICD-10 - F32.9) 08/07/2024 Seasonal allergic rhinitis, unspecified trigger (ICD-10 - J30.2) 08/07/2024 Morbid obesity (ICD-10 - E66.01) 08/07/2024 Encounter for immunization (ICD-10 - Z23) Plan Of Treatment Medication Medication Name Sig Start Date Stop Date Notes Levocetirizine Dihydrochlori de 5 MG 1 tablet in the evening Orally Once a day; Duration: 90 days Citalopram Hydrobromide 10 MG 1 tablet Orally Once a day Losartan Potassium 25 MG 1 tab(s) orally once a day; Duration: 90 days Wegovy 2.4 MG/0.75ML inject 1 pen inject or subcutaneously once weekly DULoxetine HCl 60 MG 1 capsule Orally On ce a day; Duration: 90 days 08/07/2024 Next Appt Details Follow Up: 6 Months, Reason: Provider Name:David Matson , 03/11/2026 09:00:00 AM, [address] [facility] [address] [facility], [address], [place], [place], [id number], Progress Notes * VINCE CHAVEZB:1975 (50 yo F)Acc No.[id number]:08/07/2024 Progress Notes Patient: JONATHAN JOSE Provider: Catrachita Snell M.D. :1975 A ge:49 Y S ex:Female Date:08/07/2024 Address:[address] [place] [address] , [facility] Subjective: * Chief Complaints: * 1 . 5 month check. * HPI: C ardiology: 49 year old female presents with c/o Blood Pressure Elevated?Pt here for 6 mo f/u on hypertension, states she is doing well and does not have any concerns.? * ROS: D ERMATOLOGY: no R renee. n o H jessica. G ASTROENTEROLOGY: no N ausea. n o V omiting. U ROLOGY: no D ifficulty urinating. n o B lood in urine. * Medical History: H ypertension, Allergic Rhinitis, Depression, Vitamin D Deficiency, Rheumatoid Arthritis, Dx: 2014. * Surgical History: C section x2 . * Hospitalization/Major Diagno stic Procedure: D enies Past Hospitalization. * Family History: F ather: diagnosed with Hypertension, Heart Disease. P aternal Grand Mother: diagnosed with Diabetes. * Social History: C URRENT TOBACCO USE: No . C affeine: yes, frequency: 3-4 cups of coffee or a soft drink a day. Alcohol: no. * Medications: T aking Vitamin D3 125 MCG (5000 UT) Capsule 1 cap(s) orally once a day , Taking Hydroxychloroquine Sulfate 200 MG Tablet 1 tab(s) orally bid , Taking Losartan Potassium 25 MG Tablet 1 tab(s) orally once a day , Taking Fluticasone Propionate 50 MCG/ACT Suspension 1 spray in each nostril Nasally Once a day , Taking Citalopram Hydrobromide 10 MG Tablet 1 tablet Orally Once a day , Taking Wegovy 2.4 MG/0.75ML Solution Auto-injector INJECT 1 PEN INJECTOR SUBCUTANEOUSLY ONCE WEEKLY , Taking Levocetirizine Dihydrochloride 5 MG Tablet 1 tablet in the evening Orally Once a day , Medication List reviewed and reconciled with the patient * Allergies: N .K.D.A. Objective: * Vitals: W t:285.8, Temp:97.8, BP:130/82, HR:76, Nurse:rush, Ht: 66, BMI:46.12. * Examination: C ardiology: General Appearance: p leasant, NAD. H EENT: u nremarkable. H eart sounds: R RR, normal S1, S2. L ungs: c lear, no rales or wheezes.?Extremities: n o leg edema. Assessment: * Assessment: 1. P rimary hypertension - I10 (Primary) 2 . V itamin D deficiency - E55.9? 3. D epressive disorder - F32.9 4 . S easonal allergic rhinitis, unspecified trigger - J30.2 5 . M orbid obesity - E66.01 6 . E ncounter for immunization - Z23 Plan: * Treatment: Value Reference Range B UN 12 6-20 - mg/dL * C alcium 9.3 8.6-10.4 - mg/dL * C hloride 105 97-108 - mmol/L * C O2 28 22-32 - mmol/L * C reatinine 0.78 0.50-1.00 - mg/dL * G lucose 89 65-99 - mg/dL * P otassium 4.6 3.5-5.3 - mmol/L * S odium 143 135-145 - mmol/L * e GFR by Creatinine 93 >59 - mL/min/1.73m2 * David Snell 08/08/2024 8:52:50 AM > Lab results are normal, sent to to inform. Lisa Rodriguez 08/08/2024 9:08:55 AM > Left message informing ?LAB: P-Lipid Panel (Collection Date & Time - 08/07/2024 09:32 AM)?Normal* Value Reference Range C holesterol / HDL Ratio 2.80 0.00-4.44 - Ratio * C holesterol 165 <200 - mg/dL * H DL Cholesterol 59 >39 - mg/dL * L DL Cholesterol (Calculation) 92 <130 - mg/d L * L DL/HDL Ratio 1.6 <3.3 - Ratio * N on-HDL Cholesterol 106 <130 - mg/dL * T riglycerides 71 <150 - mg/dL * David Snell 08/08/2024 8:52:50 AM > Lab results are normal, sent to to inform. Lisa Rodriguez 08/08/2024 9:08:55 AM > Left message informing ?LAB: P-Microalbumin/Creatinine, Random Urine Sample (Collection Date & Time - 08/07/2024 09:32 AM)?Normal* Value Reference Range A lbumin/Creatinine Ratio, Urine 8 0-30 - ug /mg * C reatinine, Urine 116.7 - mg/dL * M icroalbumin, Urine, Random 0.9 - mg/dL * David Snell Bouchra 08/08/2024 8:52:50 AM > Lab results are normal, sent to to inform. Lisa Rodriguez 08/08/2024 9:08:55 AM > Left message informing 2.?Vitamin D deficiency?LAB: P-Vitamin D 25-Hydroxy (Collection Date & Time - 08/07/2024 09:32 AM)? Normal* Value Reference Range V itamin D 25-Hydroxy 53.5 30.0-100.0 - ng/mL * Rachael nSellsiva Shook 08/08/2024 8:52:50 AM > Lab results are normal, sent to to inform. Lisa Rodriguez 08/08/2024 9:08:55 AM > Left message informing 3.?Depressive disorder? Stop Citalopram Hydrobromide Tablet, 10 MG, 1 tablet, Orally, Once a day;?Start DULoxetine HClCapsule Delayed Release Particles, 60 MG, 1 capsule, Orally, Once a day, 90 days, 90 Capsule, Refills 1.??4.?Seasonal allergic rhinitis, unspecified trigger? Refill Levocetirizine Dihydrochloride Tablet, 5 MG, 1 tablet in the evening, Orally, Once a day, 90days, 90, Refills 1.??5.?Morbid obesity? Refill Wegovy Solution Auto-injector, 2.4 MG/0.75ML, inject 1 pen injector subcutaneously once weekly, 2 Milliliter, Refills 5.?LAB: P-TSH reflex to FT4 (Collection Date & Time - 08/07/2024 09:32 AM)? Normal* Value Reference Range T SH reflex to FT4 1.34 0.43-5.25 - mU/L * David Snell Bouchra 08/08/2024 8:52:50 AM > Lab results are normal, sent to to inform. Lisa Rodriguez 08/08/2024 9:08:55 AM > Left message informing * Immunizations: Fluzone Quad (6months&older) : 0.5 mL (Route: Intramuscular) on Left Deltoid (Pending) (Encounter for immunization) * Follow Up: 6 Months * Images: Billing Information: * Visit Code: 68014 Office Visit, Est Pt., Level 4. * Procedure Codes: * Electronic signature of Deja Snell MD on 10/05/2025 at 09:59 AM EST Sign off status: Pending * Provider: Catrachita Snell M.D. Date: Generated for Naresh cm/Ibrahima/Gustavoransmitting on: 12/06/2024 09:59 AM EST History and Physical Notes * HPI (History of Present Illness) Category Sub-Category Detail Notes Category Not es Cardiology Blood Pressure Elevated Pt here for 6 mo f/u on hypertension, states she is doing well and does not have any concerns Examination Category Sub-Category Detail Notes Category Not es Cardiology Lungs: clear, no rales or wheezes HEENT: unremarkable Heart sounds: RRR, normal S1, S2 Extremities: no leg edema General Appearance: pleasant, NAD
--- OUTSIDE RECORDS SUMMARY | 2025-03-05 04:45 | XMS_ITS ---
Author Organization [place] Address 1210 [facility] [address] [place] [id number] Care Team Providers Care Architectural Practice Manager Name Role Phone Channing David Unavailable [phone] Allergies No Known Allergies Results Component Value Reference Range Notes Mammogram Reviewed date:04/08/2025 11:27:23 AM Interpretation:Negative Performing Lab: Notes/Report: Negative result negative REASON FOR VISIT 6 mth follow up Medications Medication SIG (Take, Route, Frequency, Duration) Notes Start Date End Date Status Losartan Potassium 25 MG 1 tab(s) orally once a day; Duration: 90 days Active Hydroxychloroquine Sulfate 200 MG 1 tab(s) orally bid Active Wegovy 2.4 MG/0.75ML inject 1 pen inject or subcutaneously once weekly Active Vitamin D3 125 MCG (5000 UT) 1 cap(s) or ally once a day; Duration: 30 day(s) Active Levocetirizine Dihydrochloride 5 MG 1 tablet in the evening Orally Once a day; Duration: 90 days Active DULoxetine HCl 60 MG Take 1 capsule by m outh once daily; Duration: 90 days Active Fluticasone Propionate 50 MCG/ACT 1 spray in each nostril Nasally Once a day 07/12/2023 Active Vital Signs Blood pressure systolic 130 mm Hg 03/05/20 25 Blood pressure diastolic 80 mm Hg 025 Heart Rate 84 /min 03/05/2025 Height 66 in 03/05/2025 Weight 282.2 lbs 03/05/2025 BMI 45.54 kg/m2 03/05/2025 Encounters Encounter Location Date Provider Diagnosis ERNESTOAdeleJ Carlos 1210 [facility] [address] [place] [id number] 03/05/2025 David Snell Primary hypertension I10 ; Seasonal allergic rhinitis, unspecified trigger J30.2 ; Morbid obesity E66.01 ; Vitamin D deficiency E55.9 and Breast cancer screening by mammogram Z12.31 Assessments Encounter Date Diagnosis (ICD Code) Assessment Notes Treatment Notes Treatment Clinical Notes Section Notes 03/05/2025 Primary hypertension (ICD-10 - I10) 03/05/2025 Seasonal allergic rhinitis, unspecified trigger (ICD-10 - J30.2) 03/05/2025 Morbid obesity (ICD-10 - E66.01) 03/05/2025 Vitamin D deficiency (ICD-10 - E55.9) 03/05/2025 Breast cancer screening by mammogram (ICD-10 - Z12.31) Plan Of Treatment Medication Medication Name Sig Start Date Stop Date Notes Losartan Potassium 25 MG 1 tab(s) orally once a day; Duration: 90 days Wegovy 2.4 MG/0.75ML inject 1 pen inject or subcutaneously once weekly Levocetirizine Dihydrochlori de 5 MG 1 tablet in the evening Orally Once a day; Duration: 90 days DULoxetine HCl 60 MG Take 1 capsule by out once daily; Duration: 90 days Next Appt Details Follow Up: 6 Months fasting, Reason: Provider Name:David Matson , 03/11/2026 09:00:00 AM, [address], [address], [place], [place], [id number], Progress Notes * VINCE CHAVEZB:1975 (50 yo F)Acc No.[id number]:03/05/2025 Progress Notes Patient: JONATHAN JOSE Provider: Catrachita Snell M.D. :1975 A ge:50 Y S ex:Female Date:03/05/2025 Address:[address] [place] [address] , [id number] Subjective: * Chief Complaints: * 1 . 6 mth follow up. * HPI: C ardiology: 50 year old female presents with c/o Blood [...] Depression, Vitamin D Deficiency, Rheumatoid Arthritis, Dx: 2013. * Surgical History: C section x2 , colonoscopy 2024. * Hospitalization/Major Diagno stic Procedure: D enies Past Hospitalization. * Family History: F ather: diagnosed with Heart Disease, Hypertension. P aternal Grand Mother: diagnosed with Diabetes. * Social History: C URRENT TOBACCO USE: No . C affeine: yes, frequency: 3-4 cups of coffee or a soft drink a day. Alcohol: no. * Medications: T aking Vitamin D3 125 MCG (5000 UT) Capsule 1 cap(s) orally once a day , Taking Hydroxychloroquine Sulfate 200 MG Tablet 1 tab(s) orally bid , Taking Fluticasone Propionate 50 MCG/ACT Suspension 1 spray in each nostril Nasally Once a day , Taking Losartan Potassium 25 MG Tablet 1 tab(s) orally once a day , Taking Levocetirizine Dihydrochloride 5 MG Tablet 1 tablet in the evening Orally Once a day , Taking Wegovy 2.4 MG/0.75ML Solution Auto-injector inject 1 pen injector subcutaneously once weekly , Taking DULoxetine HCl 60 MG Capsule Delayed Release Particles Take 1 capsule by mouth once daily , Medication List reviewed and reconciled with the patient * Allergies: N .K.D.A. Objective: * Vitals: W t: 282.2, Temp: 97.9, BP: 130/80, HR: 84, Nurse: rush, Ht: 66, BMI:45.54. * Examination: C ardiology: General Appearance: p leasant, NAD. H EENT: u nremarkable. H eart sounds: R RR, normal S1, S2. L ungs: c lear, no rales or wheezes.?Extremities: n o leg edema. Assessment: * Assessment: 1. P rimary hypertension - I10 (Primary) 2 . S easonal allergic rhinitis, unspecified trigger - J30.2 3 . M orbid obesity - E66.01 4 . V itamin D deficiency - E55.9 5 . B reast cancer screening by mammogram - Z12.31? Plan: * Treatment: 2. S easonal allergic rhinitis, unspecified trigger Refill Levocetirizine Dihydrochloride Tablet, 5 MG, 1 tablet in the evening, Orally, Once a day, 90 days, 90, Refills 1. 3. M orbid obesity Refill Wegovy Solution Auto-injector, 2.4 MG/0.75ML, inject 1 pen injector subcutaneously once weekly, 2 Milliliter, Refills 5. 4. B reast cancer screening by mammogram I maging: Mammogram (Performed Date - 03/26/2025) N egative Value Reference Range r esult negative * Maria Victoria Dori 03/12/2025 09:4 5:09 AM > faxed to [facility] Brianna Holguin 04/08/2025 11:27:18 AM EDT > Pt informed 5.?Others? Refill DULoxetine HCl Capsule Delayed Release Particles, 60 MG, Take 1 capsule by mouth once daily,90 days, 90, Refills 1.?? * Procedure Codes: 3 075F SYST BP GE 130 - 139MM HG, 3079F DIAST BP 80-89 MM HG * Follow Up: 6 Months fasting * Images: Billing Information: * Visit Code: 55977 Office Visit, Est Pt., Level 4. * Procedure Codes: 3075F SYST BP GE 130 - 139MM HG. 3079F DIAST BP 80-89 MM HG. * Electronic signature of Deja Snell MD on 10/05/2025 at 09:59 AM EST Sign off status: Pending * Provider: Catrachita Snell M.D. Date: 0 03/05/2025 Generated for Naresh cm/Ibrahima/Heatheritting on: 1 12/06/2024 09:59 AM EST History and Physical [...]
--- OUTSIDE RECORDS SUMMARY | 2025-09-10 04:00 | XMS_ITS ---
Author Organization [facility] Address 1210 [facility] 36 [facility] [address] [place] [id number] Care Team Providers Care Associate Principal Name Role Phone David Snell Unavailable [phone] Allergies No Known Allergies Results Component Value Reference Range Notes P-Basic Metabolic Panel (BMP ) Reviewed date:09/11/2025 09:19:59 AM Interpretation:Normal Performing Lab: Notes/Report: Test performed by [facility] [address] [place], [place] [address] [address] , [address], [place] [address] Arvind See MD, Pharmacy Ancillary CLIA: [id number] Sodium 141 135-145 mmol/L Potassium 4.2 3.5-5.3 mmol/L Chloride 103 97-108 mmol/L CO2 26 20-32 mmol/L Glucose 93 65-99 mg/dL BUN 10 6-20 mg/dL Creatinine 0.77 0.50-1.00 mg/dL Calcium 8.9 8.6-10.4 mg/dL eGFR by Creatinine 94 >59 mL/min/1.73m2 P-Lipid Panel Reviewed date:09/11/2025 09:19:59 AM Interpretation:Normal Performing Lab: Notes/Report: Test performed by [facility] [employer] [address] , [address], [place] [address] Arvind See MD, Pharmacy Ancillary CLIA: [id number] Lipid Panel Footnote See Below *Based on optimal reference values. Please refer to the DOS for additional information regarding diagnostic lipid reference ranges, patient management based on the recently updated lipid guidelines ([place] [employer]/[place] [employer] Task Force on Clinical Practice Guidelines (2018), and pediatric diagnostic lipid reference values (<18 years old). Total Cholesterol 177 <200 mg/dL Triglycerides 74 <150 mg/dL HDL Cholesterol 67 >50 mg/dL Total Cholesterol / HDL Ratio* 2.64 <3.99 Rati o Non-HDL Cholesterol 110 <130 mg/dL LDL Cholesterol (Calculation) 95 <100 mg/dL LDL / HDL Ratio* 1.42 <1.99 Ratio LDL Cholesterol Patient History Test Date: 08/07/2024 LDL Results: 92 Units: mg/dL % Change: - Test Date: 09/10/2025 LDL Results: 95 Units: mg/dL % Change: +3% P-TSH reflex to FT4 Reviewed date:09/11/2025 09:19:59 AM Interpretation:Normal Performing Lab: Notes/Report: Test performed by [facility], [address] , [address], [place] [address] Arvind See MD, Pharmacy Ancillary CLIA: [id number] TSH reflex to FT4 1.50 0.43-5.25 mU/L P-Microalbumin/Creatinine, R andom Urine Sample Reviewed date:09/18/2025 10:02:42 AM Interpretation:Normal Performing Lab: Notes/Report: Test performed by [facility] [address] [place] [address] , [address], [place] [address] Arvind See MD, Pharmacy Ancillary CLIA: [id number] Albumin/Creatinine Ratio, Urine 12 0-30 ug/mg Microalbumin, Urine, Random 1.2 Creatinine, Urine 97.6 P-Vitamin D 25-Hydroxy Reviewed date:09/11/2025 09:19:59 AM Interpretation:40.2 Performing Lab: Notes/Report: Test performed by [facility] [address] [place] [address] [address], [place] [address] Arvind See MD, Pharmacy Ancillary CLIA: [id number] Vitamin D 25-Hydroxy 40.2 30.0-100.0 ng/mL Interpretation of Vitamin D 25 OH: < 20 ng/mL - Deficiency 20 - 29 ng/mL - Insufficiency 30 - 100 ng/mL - Sufficiency > 100 ng/mL - Super-therapeutic- toxicity may occur above this level. Clinical correlation required. REASON FOR VISIT 6 months fasting Medications Medication SIG (Take, Route, Frequency, Duration) Notes Start Date End Date Status Wegovy 2.4 MG/0.75ML inject 1 pen inject or subcutaneously once weekly Active DULoxetine HCl 60 MG Take 1 capsule by m outh once daily; Duration: 90 days Active Vitamin D3 125 MCG (5000 UT) 1 cap(s) or ally once a day; Duration: 30 day(s) Active Hydroxychloroquine Sulfate 200 MG 1 tab(s) orally bid Active Fluticasone Propionate 50 MCG/ACT 1 spray in each nostril Nasally Once a day 07/12/2023 Active Losartan Potassium 25 MG 1 tab(s) orally once a day; Duration: 90 days Active Levocetirizine Dihydrochloride 5 MG 1 tablet in the evening Orally Once a day; Duration: 90 days Active Immunizations Vaccine Route Administration Date Status Commedith Rico (6months&older) IM Intramuscular 09/10/2025 Administered Vital Signs Blood pressure systolic 132 mm Hg 09/10/20 25 Blood pressure diastolic 80 mm Hg 025 Heart Rate 88 /min 09/10/2025 Height 66 in 09/10/2025 Weight 290.8 lbs 09/10/2025 BMI 46.93 kg/m2 09/10/2025 Encounters Encounter Location Date Provider Diagnosis ERNESTO-J Carlos [address] [place] [address] [address] [place] [phone] 09/10/2025 David Snell Primary hypertension I10 ; Seasonal allergic rhinitis, unspecified trigger J30.2 ; Vitamin D deficiency E55.9 ; Depressive disorder F32.9 ; Morbid obesity E66.01 and Encounter for immunization Z23 Assessments Encounter Date Diagnosis (ICD Code) Assessment Notes Treatment Notes Treatment Clinical Notes Section Notes 09/10/2025 Primary hypertension (ICD-10 - I10) 09/10/2025 Seasonal allergic rhinitis, unspecified trigger (ICD-10 - J30.2) 09/10/2025 Vitamin D deficiency (ICD-10 - E55.9) 09/10/2025 Depressive disorder (ICD-10 - F32.9) 09/10/2025 Morbid obesity (ICD-10 - E66.01) 09/10/2025 Encounter for immunization (ICD-10 - Z23) Plan Of Treatment Medication Medication Name Sig Start Date Stop Date Notes Wegovy 2.4 MG/0.75ML inject 1 pen inject or subcutaneously once weekly DULoxetine HCl 60 MG Take 1 capsule by out once daily; Duration: 90 days Losartan Potassium 25 MG 1 tab(s) orally once a day; Duration: 90 days Levocetirizine Dihydrochlori de 5 MG 1 tablet in the evening Orally Once a day; Duration: 90 days Next Appt Details Follow Up: 6 Months, Reason: Provider Name:David Matson , 03/11/2026 09:00:00 AM, [address], [address], [place], [id number], Progress Notes * VINCE CHAVEZB:1975 (50 yo F)Acc No.[id number]:09/10/2025 Progress Notes Patient: JONATHAN JOSE Provider: Catrachita Snell M.D. :1975 A ge:50 Y S ex:Female Date:09/10/2025 Address:[address] [place] [address] [address] [id number] Subjective: * Chief Complaints: * 1 . 6 months fasting. * HPI: C ardiology: 50 year old female presents with c/o Blood Pressure Elevated?Pt here for 6 month follow up on Hypertension. Pt is fasting today. Pt states she has no new concerns at this time. Pt states she does need refills . * Medical History: H ypertension, Allergic Rhinitis, [...] N .K.D.A. Objective: * Vitals: W t: 290.8, Temp: 98.9, BP: 132/80, HR: 88, Nurse: ASCENCION, Ht: 66, BMI:46.93. * Examination: C ardiology: General Appearance: p leasant, NAD. H EENT: u nremarkable. H eart sounds: R RR, normal S1, S2. L ungs: c lear, no rales or wheezes.?Extremities: n o leg edema. Assessment: * Assessment: 1. P rimary hypertension - I10 (Primary) 2 . S easonal allergic rhinitis, unspecified trigger - J30.2 3 . V itamin D deficiency - E55.9 4 .?Depressive disorder - F32.9 5 . M orbid obesity - E66.01 6 . E ncounter for immunization - Z23 Plan: * Treatment: Value Reference Range B UN 10 6-20 - mg/dL * C alcium 8.9 8.6-10.4 - mg/dL * C hloride 103 97-108 - mmol/L * C O2 26 20-32 - mmol/L * C reatinine 0.77 0.50-1.00 - mg/dL * G lucose 93 65-99 - mg/dL * P otassium 4.2 3.5-5.3 - mmol/L * S odium 141 135-145 - mmol/L * e GFR by Creatinine 94 >59 - mL/min/1.73m2 * Diana Alatmirano 09/11/2025 09: 20:01 AM EST > See phone encounter ?LAB: P-Lipid Panel (Collection Date & Time - 09/10/2025 08:39 AM)?Normal* Value Reference Range C holesterol / HDL Ratio 2.64 <3.99 - Ratio * C holesterol 177 <200 - mg/dL * H DL Cholesterol 67 >50 - mg/dL * L DL Cholesterol (Calculation) 95 <100 - mg/d L * L DL/HDL Ratio 1.42 <1.99 - Ratio * N on-HDL Cholesterol 110 <130 - mg/dL * T riglycerides 74 <150 - mg/dL * L ipid Panel Footnote See Below - * Diana Altamirano 09/11/2025 09: 20:01 AM EST > See phone encounter ?LAB: P-Microalbumin/Creatinine, Random Urine Sample (Collection Date & Time - 09/12/2025 08:39 AM)?Normal* Value Reference Range A lbumin/Creatinine Ratio, Urine 12 0-30 - ug /mg * C reatinine, Urine 97.6 - mg/dL * M icroalbumin, Urine, Random 1.2 - mg/dL * Brianna Linn 09/18/2025 10:02 :32 AM EST > Pt notified 2.?Seasonal allergic rhinitis, unspecified trigger? Refill Levocetirizine Dihydrochloride Tablet, 5 MG, 1 tablet in the evening, Orally, Once a day, 90days, 90, Refills 1.??3.?Vitamin D deficiency?LAB: P-Vitamin D 25-Hydroxy (Collection Date & Time - 09/10/2025 08:39 AM)? 40.2* Value Reference Range V itamin D 25-Hydroxy 40.2 30.0-100.0 - ng/mL * Diana Altamirano 09/11/2025 09: 20:01 AM EST > See phone encounter 4.?Depressive disorder? Refill DULoxetine HCl Capsule Delayed Release Particles, 60 MG, Take 1 capsule by mouth once daily,90 days, 90, Refills 1.??5.?Morbid obesity? Continue Wegovy Solution Auto-injector, 2.4 MG/0.75ML, inject 1 pen injector subcutaneously once weekly, 3 mL, Refills 5.?LAB: P-TSH reflex to FT4 (Collection Date & Time - 09/10/2025 08:39 AM)? Normal* Value Reference Range T SH reflex to FT4 1.50 0.43-5.25 - mU/L * Diana Altamirano 09/11/2025 09: 20:01 AM EST > See phone encounter * Immunizations: Fluzone Quad (6months&older) : 0.5 mL (Route: Intramuscular) given by Adilia Jonas on Left Deltoid (Encounter for immunization) * Procedure Codes: 3 075F SYST BP GE 130 - 139MM HG, 3079F DIAST BP 80-89 MM HG * Follow Up: 6 Months * Images: Billing Information: * Visit Code: 29744 Office Visit, Est Pt., Level 4. * Procedure Codes: 3075F SYST BP GE 130 - 139MM HG. 3079F DIAST BP 80-89 MM HG. * Electronic signature of Deja Snell MD on 10/05/2025 at 09:58 AM EST Sign off status: Pending * Provider: Catrachita Snell M.D. Date: 1 11/10/2024 Generated for Mariahi ng/Faalleyg/eTransmitting on: 1 12/06/2024 09:58 AM EST History and Physical Notes * HPI (History of Present Illness) Category Sub-Category Detail Notes Category Not es Cardiology Blood Pressure Elevated Pt here for 6 month follow up on Hypertension. Pt is fasting today. Pt states she has no new concerns at this time. Pt states she does need refills Examination Category Sub-Category Detail Notes Category Not es Cardiology Lungs: clear, no rales or wheezes HEENT: unremarkable Heart sounds: RRR, normal S1, S2 Extremities: no leg edema General Appearance: pleasant, NAD
--- OUTSIDE RECORDS SUMMARY | 2025-09-12 03:10 | XMS_ITS ---
Author Organization [facility] Address [address] [facility] [address] [place] [id number] Care Team Providers Care Head Neck Surgeon Name Role Phone David Snell Unavailable [phone] Results Component Value Reference Range Notes Urinalysis - Inhouse Reviewed date:09/15/2025 04:44:16 PM Interpretation: Performing Lab: Notes/Report: Color/Clarity yellow/clear Leuk 3+ Nitrite neg Urobili 3.2 Protein neg pH 6.5 Blood trace-intact Sp. Gr. 1.030 Ketone neg Bili neg Gluc neg P-Culture, Urine Reviewed date:09/19/2025 12:57:46 PM Interpretation:No Significant Growth Performing Lab: Notes/Report: Test performed by [facility] [address] [place] [address] , [address], [place] [address] Arvind See MD, Information Systems Consultant CLIA: [id number] Specimen Source Urine - Void Culture, Urine See Below Final Report : No Significant Growth REASON FOR VISIT urine sample Medications Medication SIG (Take, Route, Frequency, Duration) Notes Start Date End Date Status DULoxetine HCl 60 MG Take 1 capsule by m outh once daily; Duration: 90 days Active Wegovy 2.4 MG/0.75ML inject 1 pen inject or subcutaneously once weekly Active Fluticasone Propionate 50 MCG/ACT 1 spray in each nostril Nasally Once a day 07/12/2023 Active Levocetirizine Dihydrochloride 5 MG 1 tablet in the evening Orally Once a day; Duration: 90 days Active Losartan Potassium 25 MG 1 tab(s) orally once a day; Duration: 90 days Active Vitamin D3 125 MCG (5000 UT) 1 cap(s) or ally once a day; Duration: 30 day(s) Active Hydroxychloroquine Sulfate 200 MG 1 tab(s) orally bid Active Encounters Encounter Location Date Provider Diagnosis [facility] [address] [facility] 36 [facility] [address] [place] [id number] 09/12/2025 [place] Dysuria R30.0 Assessments Encounter Date Diagnosis (ICD Code) Assessment Notes Treatment Notes Treatment Clinical Notes Section Notes 09/12/2025 Dysuria (ICD-10 - R30.0) Plan Of Treatment Next Appt Details Provider Name:David Matson ry, 03/11/2026 09:00:00 AM, 1210 [facility] 36 [facility], [address], [place], [id number], Progress Notes * CHAVEZEDWARD THAPARAHEEMB:1975 (50 yo F)Acc No.[id number]:09/12/2025 Patient: JONATHAN JOSE Provider: Catrachita Snell M.D. :1975 A ge:50 Y S ex:Female Date:09/12/2025 Address:[address] [place] [address] , [place] Subjective: * Chief Complaints: * 1 . Urine sample. * Medical History: * Medications: T aking Vitamin D3 125 [...] List reviewed and reconciled with the patient Objective: * Vitals: Assessment: * Assessment: 1. D ysuria - R30.0 (Primary) Plan: * Treatment: Value Reference Range C ulture, Urine See Below - * S pecimen Source Urine - Void - * Brianna Linn 09/19/2025 12:57 :29 PM EST > Pt notified ?LAB: Urinalysis - Inhouse (Collection Date & Time - 09/12/2025)* Value Reference Range C olor/Clarity yellow/clear * L euk 3+ * N itrite neg * U robili 3.2 * P rotein neg * p H 6.5 * B lood trace-intact * S p. Gr. 1.030 * K etone neg * B varinder neg * G leeroy neg * Adilia Jonas 09/12/2025 08 :23:53 AM EST > * Procedure Codes: 8 1002 Urinalysis, no micro * Images: Billing Information: * Visit Code: * Procedure Codes: 64364 Urinalysis, no micro. * Electronic signature of Deja Snell MD on 10/05/2025 at 09:59 AM EST Sign off status: Pending * Provider: Catrachita Snell M.D. Date: 1 11/12/2024 Generated for Nraesh ng/Ibrahima/eTransmitting on: 12/06/2024 09:59 AM EST
--- OUTSIDE RECORDS SUMMARY | 2025-09-17 08:45 | XMS_ITS | Encounter Summary ---
[facility] Address [address] [place] [address] Care Team Providers Care Corporate Communications Specialist Name Role Phone David Snell MD Primary Care Provider + [phone] Reason for Visit * Reason Comments Rheumatoid Arthritis Follow up Encounter Details Date Type Department Care Team (Late st Contact Info) Description 09/17/2025 8:45 AM EST Office Visit [facility] [address] [address] Marino Dunne DO [address] [place] [id number] Seropositive rheumatoid arthritis (Primary Dx); High risk medication use Social History Tobacco Use Types Packs/Day Years Used Date Smoking Tobacco: Never Passive Smoke Exposure: Past Smokeless Tobacco: Never Tobacco Cessation:Counseling Given: Not Answered Alcohol Use Standard Drinks/Week Comments Never 0 (1 standard drink = 0.6 oz pur e alcohol) PHQ-2 Answer Date Recorded Retired PHQ-9: Brief Depression Severity Measure Score 0 03/14/2024 Comments Unknown Sex and Gender Information Value Date Recorded Sex Assigned at Not on file Legal Sex Female 11:43 AM EDT Gender Identity Not on file Sexual Orientation Not on file documented as of this encounter Last Filed Vital Signs Vital Sign Reading Time Taken Comments Blood Pressure 128/64 09/17/2025 8:50 AM EST Pulse 91 09/17/2025 8:50 AM EST Temperature 36.6 C (97.8 F) 09/17/2025 8:50 AM EST Respiratory Rate - - Oxygen Saturation - - Inhaled Oxygen Concentration - - Weight 131 kg (289 lb) 09/17/2025 8:50 AM EST Height 170.2 cm (5' 7 ) 09/17/2025 8:50 AM EST Body Mass Index 45.26 09/17/2025 8:50 AM EST documented in this encounter Patient Instructions * Attachments The following attachments cannot be sent through Care Everywhere. * Osteoarthritis (Kinyarwanda) documented in this encounter Progress Notes * Marino Dunne DO - 09/17/2025 8:45 AM ESTAssociated Problem(s): Seropositive rheumatoid arthritis * Medications/treatments/interventions tried include: Tylenol, Plaquenil, Celexa, prednisone, She saw Dr. Monteiro (Fha Underwriter, in [facility]), She saw Dr. Calixto (Fha Underwriter in [facility]), duloxetine 1. Continue/refill Plaquenil 2. Check labs 3. Follow up in 6 months 4. We gave her a patient education handout on rheumatoid arthritis to take home and review 5. Her arthritis seems well controlled. 6. Her prognosis is good Orders: CBC Auto Differential Comprehensive Metabolic Panel C-reactive Protein Sedimentation Rate * Marino Dunne DO - 09/17/2025 8:45 AM ESTAssociated Problem(s): High risk medication use * Plaquenil 200 mg PO BID For RA Patient's taking hydroxychloroquine should have an eye exam at least once/year to monitor for signsof medication toxicity Orders: CBC Auto Differential Comprehensive Metabolic Panel C-reactive Protein Sedimentation Rate * Marino Dunne DO - 09/17/2025 8:45 AM EST Office Follow Up Date: 09/17/2025 Patient Name: Swati Aldana Date of : 1975 Chief Complaint Patient presents with Rheumatoid Arthritis Follow up History of Present Illness: Swati Aldana is a 50 y.o. female who is here today for follow up. We prescribe her Plaquenil. She needs refills. No recent injuries. She has joint pain. She rates her pain today as 1/10 in severity. She has 10 minutes/day of morningstiffness. No red or hot joints. No swelling today. No muscle pain or weakness. No new back or neckissues. No rash. No hair loss. No headaches or paresthesias. No lymphadenopathy. No abnormal bruising/bleeding. No GI or issues. No chest pain. No shortness of breath. She has dry mouth but not dry eyes. She is fatigued. Subjective Review of Systems Constitutional: Positive for fatigue. HENT: Positive for dental problem (Dry mouth). Eyes: Negative. Respiratory: Negative. Cardiovascular: Negative. Gastrointestinal: Negative. Endocrine: Negative. Genitourinary: Negative. Musculoskeletal: Positive for arthralgias. Skin: Negative. Allergic/Immunologic: Negative. Neurological: Negative. Hematological: Negative. Psychiatric/Behavioral: Negative. All other systems reviewed and are negative. Current Outpatient Medications: DULoxetine (CYMBALTA) 60 MG capsule, Take 1 capsule by mouth Daily., Disp: , Rfl: hydroxychloroquine (PLAQUENIL) 200 MG tablet, Take 1 tablet by mouth 2 (Two) Times a Day., Disp: 180 tablet, Rfl: 2 levocetirizine (XYZAL) 5 MG tablet, Take 1 tablet by mouth Every Evening., Disp: , Rfl: losartan (COZAAR) 25 MG tablet, Take 1 tablet by mouth Daily., Disp: , Rfl: Multiple Vitamins-Minerals (b stkfgga-M-U-zinc) tablet, Take 1 tablet by mouth Daily., Disp: , Rfl: vitamin C (ASCORBIC ACID) 250 MG tablet, Take 1 tablet by mouth Daily., Disp: , Rfl: vitamin D3 (vitamin d) 125 MCG (5000 UT) capsule capsule, Take 1 capsule by mouth Daily., Disp: , Rfl: Wegovy 2.4 MG/0.75ML solution auto-injector, Inject 4 mL under the skin into the appropriate area as directed 1 (One) Time Per Week., Disp: , Rfl: Allergies Allergen Reactions Yeast-Derived Drug Products Unknown - Low Severity I have reviewed and updated the patient's chief complaint, history of present illness, review of systems, past medical history, surgical history, family history, social history, medications and allergy list as appropriate. Objective Vitals: 09/17/25 0850 BP: 128/64 Pulse: 91 Temp: 97.8 ??F (36.6 ??C) Weight: 131 kg (289 lb) Height: 170.2 cm (67 ) PainSc: 1 Body mass index is 45.26 kg/m??. Physical Exam General: Well appearing 50 year old female. Not in distress. She is ambulating unassisted. SKIN: No rashes. No alopecia. No subcutaneous nodules. No digital pits or ulcers. No sclerodactyly. HEENT: NCAT. Conjunctiva clear, no photophobia. No oral or nasal ulcers. Hearing intact. Pulmonary: Clear to auscultation bilaterally. No wheezing, rales, or rhonchi. CV: Regular rate and rhythm. No murmurs, rubs, or gallops. Psych: Normal mood and affect. Alert and oriented x 3. Extremities: No cyanosis or edema. Musculoskeletal: No joint swelling or tenderness to palpation. No warmth or erythema. Normal range of motion of the wrists, ankles, elbows, and knees. Lymph: No palpable cervical adenopathy Procedures Assessment / Plan Assessment & Plan Seropositive rheumatoid arthritis * Medications/treatments/interventions tried include: Tylenol, Plaquenil, Celexa, prednisone, She saw Dr. Monteiro (Fha Underwriter, in [facility]), She saw Dr. Calixto (Fha Underwriter in [facility]), duloxetine 1. Continue/refill Plaquenil 2. Check labs 3. Follow up in 6 months 4. We gave her a patient education handout on rheumatoid arthritis to take home and review 5. Her arthritis seems well controlled. 6. Her prognosis is good Orders: CBC Auto Differential Comprehensive Metabolic Panel C-reactive Protein Sedimentation Rate High risk medication use * Plaquenil 200 mg PO BID For RA Patient's taking hydroxychloroquine should have an eye exam at least once/year to monitor for signsof medication toxicity Orders: CBC Auto Differential Comprehensive Metabolic Panel C-reactive Protein Sedimentation Rate Follow Up: Return in about 6 months (around 03/17/2026). Marino Dunne DO [facility] [place] documented in this encounter Plan of Treatment Upcoming Encounters Date Type Department Care Team (Late st Contact Info) Description 03/18/2026 8:30 AM EDT Office Visit [facility] [address] [facility] [address] [place] [address] Lauri Quijano APRN [address] [facility] [address] [place] [address] Scheduled Orders Name Type Priority Associated Diagnoses Orde r Schedule CBC Auto Differential Lab Routine Seropositive rheumatoid arthritis High risk medication use Ordered: 09/17/2025 documented as of this encounter Procedures Procedure Name Priority Date/Time Associated Diagnosis Comments SEDIMENTATION RATE Routine 09/17/2025 9: 44 AM EST Seropositive rheumatoid arthritis High risk medication use CBC AND DIFFERENTIAL Routine 09/17/2025 9:44 AM EST C-REACTIVE PROTEIN Routine 09/17/2025 9: 44 AM EST Seropositive rheumatoid arthritis High risk medication use COMPREHENSIVE METABOLIC PANEL Routine 09/17/2025 9:44 AM EST Seropositive rheumatoid arthritis High risk medication use documented in this encounter Results * (ABNORMAL) CBC & Differential (09/17/2025 9:44 AM EST) WBC 6.14 3.40 - 10.80 10*3/mm3 [facility] RBC 4.76 3.77 - 5.28 10*6/mm3 [facility] Hemoglobin 12.0 12.0 - 15.9 g/dL [facility] Hematocrit 38.8 34.0 - 46.6 % [facility] MCV 81.5 79.0 - 97.0 fL [facility] MCH 25.2(L) 26.6 - 33.0 pg [facility] MCHC 30.9(L) 31.5 - 35.7 g/dL [facility] RDW 14.2 12.3 - 15.4 % [facility] Platelets 315 140 - 450 10*3/mm3 [facility] Neutrophil Rel % 56.9 42.7 - 76.0 % [facility] Lymphocyte Rel % 32.2 19.6 - 45.3 % [facility] Monocyte Rel % 7.0 5.0 - 12.0 % [facility] Eosinophil Rel % 2.9 0.3 - 6.2 % [facility] Basophil Rel % 0.7 0.0 - 1.5 % [facility] Neutrophils Absolute 3.49 1.70 - 7.00 10*3/mm3 [facility] Lymphocytes Absolute 1.98 0.70 - 3.10 10*3/mm3 [facility] Monocytes Absolute 0.43 0.10 - 0.90 10*3/mm3 [facility] Eosinophils Absolute 0.18 0.00 - 0.40 10*3/mm3 [facility] Basophils Absolute 0.04 0.00 - 0.20 10*3/mm3 [facility] Immature Granulocyte Rel % 0.3 0.0 - 0.5 % [facility] Immature Grans Absolute 0.02 0.00 - 0.05 10*3/mm3 [facility] nRBC 0.0 0.0 - 0.2 /100 WBC [facility] 09/17/2025 9:44 AM EST 09/17/2025 Narrative [facility] ([facility]) - 09/18/2025 12:06 AM EST Performed at: [address] [id number] Horse Race Timer: Miko Burgess MD, Phone: [phone] Patient Fasting: N us Marino Dunne DO LAB BLOOD ORDERABLES F inal Result [facility] ([facility]) [address] [place] [address], [place] [phone] [facility] [address] [place] [address], [place] [phone] * (ABNORMAL) Sedimentation Rate (09/17/2025 9:44 AM EST) [facility] Sed Rate 30(H) 0 - 20 mm/hr [facility] Blood 09/17/2025 9:44 AM EST 09/17/2025 Narrative [facility] ([facility]) - 09/18/2025 12:06 AM EST Performed at: [address] [place] [id number] Horse Race Timer: Miko Burgess MD, Phone: [phone] Patient Fasting: N [facility] LAB BLOOD ORDERABLES F inal Result Performing Organization Address City/[facility]/ZIP Co de Phone Number [facility] [address] [place] [address], [facility] [address] [place] [address], * (ABNORMAL) C-reactive Protein (09/17/2025 9:44 AM EST) [facility] C-Reactive Protein 0.57(H) 0.00 - 0.50 mg/dL [facility] Blood 09/17/2025 9:44 AM EST 09/17/2025 Narrative [facility] ([facility]) - 09/18/2025 12:06 AM EST Performed at: [address] [place] [id number] Horse Race Timer: Miko Burgess MD, Phone: [phone] Patient Fasting: N [facility] LAB BLOOD ORDERABLES F inal Result Performing Organization Address City/[facility]/ZIP Co de Phone Number [facility] (AMBULAT[facility]) [address] [place] [address], [place] [phone] [facility] [address] [place] [address], * Comprehensive Metabolic Panel (09/17/2025 9:44 AM EST) [facility] Glucose 88 65 - 99 mg/dL [facility] BUN 12.0 6.0 - 20.0 mg/dL [facility] Creatinine 0.89 0.57 - 1.00 mg/dL [facility] EGFR Result 79.1 >60.0 mL/min/1.7 3 [facility] Comment: GFR Categories in Chronic Kidney Disease (CKD) GFR Category GFR (mL/min/1.73) Interpretation G1 90 or greater Normal or high (1) G2 60-89 Mild decrease (1) G3a 45-59 Mild to moderate decrease G3b 30-44 Moderate to severe decrease G4 15-29 Severe decrease G5 14 or less Kidney failure (1)In the absence of evidence of kidney disease, neither GFR category G1 or G2 fulfill the criteria for CKD. eGFR calculation 2020 CKD-EPI creatinine equation, which does not include race as a factor BUN/Creatinine Ratio 13.5 7.0 - 25.0 [facility] Sodium 144 136 - 145 mmol/L [facility] Potassium 4.5 3.5 - 5.2 mmol/L [facility] Chloride 107 98 - 107 mmol/L [facility] Total CO2 25.8 22.0 - 29.0 mmol/L [facility] Calcium 9.3 8.6 - 10.5 mg/dL [facility] Total Protein 6.9 6.0 - 8.5 g/dL [facility] Albumin 3.9 3.5 - 5.2 g/dL [facility] Globulin 3.0 gm/dL [facility] A/G Ratio 1.3 g/dL [facility] Total Bilirubin 0.2 0.0 - 1.2 mg/dL [facility] Alkaline Phosphatase 116 39 - 117 U/L [facility] AST (SGOT) 29 1 - 32 U/L [facility] ALT (SGPT) 22 1 - 33 U/L [facility] Blood 09/17/2025 9:44 AM EST 09/17/2025 Narrative [facility] ([facility]) - 09/18/2025 12:06 AM EST Performed at: [address] [place] [id number] Horse Race Timer: Miko Burgess MD, Phone: [phone] Patient Fasting: N Marino Cipriano Vibha DO LAB BLOOD ORDERABLES F inal Result [facility] ([facility]) [address] [place] [address], [facility] [address] [place] [address], documented in this encounter Visit Diagnoses Diagnosis Seropositive rheumatoid arthritis- Primary High risk medication use documented in this encounter Care Teams Corporate Communications Specialist Relationship Specialty Start Date End Date David Snell MD [facility] [address] [facility] [address] [place] [address] PCP - General Family Medicine 03/14/24 documented as of this encounter
[2025-10-02 14:39] LABS: Coronavirus 19, PCR Not Detected (NotDetected); Influenza A, PCR Not Detected (NotDetected); Influenza B, PCR Not Detected (NotDetected)
--- OUTSIDE RECORDS SUMMARY | 2025-10-05 09:58 | XMS_ITS | Encounter Summary ---
[facility] Address [address] [place] [id number] Care Team Providers Care Greeter Name Role Phone David Snell MD Primary Care Provider + [phone] Encounter Details Date Type Department Care Team (Late Contact Info) Description 09/18/2025 Results Follow-Up [facility] RHEUM[facility]OLOGY [address] [address] Marino Dunne DO [address] [phone] Social History Tobacco Use Types Packs/Day Years Used Date Smoking Tobacco: Never Passive Smoke Exposure: Past Smokeless Tobacco: Never Alcohol Use Standard Drinks/Week Comments Never 0 [...] on file documented as of this encounter Plan of Treatment Upcoming Encounters Date Type Department Care Team (Late st Contact Info) Description 03/18/2026 8:30 AM EDT Office Visit [facility] RHE[facility]OLOGY [address] [facility] [address] [place] [address] Lauri Quijano APRN [address] [phone] documented as of this encounter Visit Diagnoses Not on filedocumented in this encounter Care Teams Greeter Relationship Specialty Start Date End Date David Snell MD 12[address] [facility] 36 [facility] 2 [facility] [address] PCP - General Family Medicine 03/14/24 documented as of this encounter
--- OUTSIDE RECORDS SUMMARY | 2025-10-05 09:58 | XMS_ITS | Encounter Summary ---
Author Organization [facility] Address [address] [place] [phone] Care Team Providers Care Director Of Recruitment Name Role Phone David Snell MD Primary Care Provider + [phone] Encounter Details Date Type Department Care Team (Latest Contact Info) Description 09/17/2025 Travel Social History Tobacco Use Types Packs/Day Years [...] Description 03/18/2026 8:30 AM EDT Office Visit [facility] RHEUMATOLOGY [address] [address] Lauri Quijano APRN [address] [phone] documented as of this encounter Visit Diagnoses Not on filedocumented in this encounter Care Teams Director Of Recruitment Relationship Specialty Start Date End Date David Snell MD [address] [facility] [address] [place] [address] PCP - General Family Medicine 03/14/24 documented as of this encounter
--- OUTSIDE RECORDS SUMMARY | 2025-10-05 09:59 | XMS_ITS | Clinical Summary ---
Author Organization [facility] Address [address] [place] [address] Care Team Providers Care Cable Armorer Operator Name Role Phone David Snell MD Primary Care Provider + [phone] Allergies Active Allergy Reactions Criticality Noted Date Comments Yeast-Derived Drug Products Unknown - Low Severity 01/30/2023 Medications Multiple Vitamins-Skamania als (b cvicvvk-U-P-zi nc) tablet Take 1 tablet by mouth Daily. Active losartan (COZAAR) 25 MG tablet Take 1 tablet by mouth Daily. Active vitamin C (ASCORBIC ACID) 250 MG tablet Take 1 tablet by mouth Daily. Active levocetirizine (XYZAL) 5 MG tablet Take 1 tablet by mouth Every Evening. 01/08/20 24 Active Wegovy 2.4 MG/0.75ML solution auto-injector Inject 4 mL under the skin into the appropriate area as directed 1 (One) Time Per Week. 02/04/20 24 Active DULoxetine (CYMBALTA) 60 MG capsule Take 1 capsule by mouth Daily. 08/08/20 24 Active vitamin D3 (vitamin d) 125 MCG (5000 UT) capsule capsule Take 1 capsule by mouth Daily. Active hydroxychloroq uine (PLAQUENIL) 200 MG tablet Take 1 tablet by mouth 2 (Two) Times a Day. 180 tablet 2 09/17/20 25 Active sodium-potassi um-magnesium sulfates (SUPREP) 17.5-3.13-1.6 GM/177ML solution oral solution 12/17/19 25 025 Discontinue d(Patient Reported Not Taking) hydroxychloroq uine (PLAQUENIL) 200 MG tablet Take 1 tablet by mouth 2 (Two) Times a Day. 180 tablet 2 03/19/20 25 025 Discontinue d(Reorder) Active Problems Problem Noted Date Diagnosed Date High risk medication use 09/18/2024 Assessment & Plan (09/17/2025 9:05 AM EST): * Plaquenil 200 mg PO BID For RA Patient's taking hydroxychloroquine should have an eye exam at least once/year to monitor for signs of medication toxicity Orders: CBC Auto Differential Comprehensive Metabolic Panel C-reactive Protein Sedimentation Rate Assessment & Plan (03/19/2025 9:08 AM EDT): * Plaquenil 200 mg PO BID For RA Patient's taking hydroxychloroquine should have an eye exam at least once/year to monitor for signs of medication toxicity Orders: CBC Auto Differential; Future Comprehensive Metabolic Panel; Future C-reactive Protein; Future Sedimentation Rate; Future Assessment & Plan (09/18/2024 9:08 AM EST): * Plaquenil 200 mg PO BID For RA Patient's taking hydroxychloroquine should have an eye exam at least once/year to monitor for signs of medication toxicity Orders: Comprehensive Metabolic Panel; Future CBC Auto Differential; Future C-reactive Protein; Future Sedimentation Rate; Future Seropositive rheumatoid arthritis 03/13/2024 Assessment & Plan (09/17/2025 9:05 AM EST): * Medications/treatments/interventions tried include: Tylenol, Plaquenil, Celexa, prednisone, She saw Dr. Monteiro (Deposition Operator, in [facility]), She saw Dr. Calixto (Deposition Operator in [facility]), duloxetine 1. Continue/refill Plaquenil 2. Check labs 3. Follow up in 6 months 4. We gave her a patient education handout on rheumatoid arthritis to take home and review 5. Her arthritis seems well controlled. 6. Her prognosis is good Orders: CBC Auto Differential Comprehensive Metabolic Panel C-reactive Protein Sedimentation Rate Assessment & Plan (03/19/2025 9:08 AM EDT): * Medications/treatments/interventions tried include: Tylenol, Plaquenil, Celexa, prednisone, She saw Dr. Monteiro (Deposition Operator, in [facility]), She saw Dr. Calixto (Deposition Operator in [facility]), duloxetine 1. Continue/refill Plaquenil 2. Check labs 3. Follow up in 6 months 4. We gave her a patient education handout on rheumatoid arthritis to take home and review 5. Her arthritis seems well controlled. Her prognosis is good Orders: CBC Auto Differential; Future Comprehensive Metabolic Panel; Future C-reactive Protein; Future Sedimentation Rate; Future Assessment & Plan (09/18/2024 9:08 AM EST): * Medications/treatments/interventions tried include: Tylenol, Plaquenil, Celexa, prednisone, She saw Dr. Monteiro (Deposition Operator, in [facility]), She saw Dr. Calixto (Deposition Operator in [facility]), duloxetine 1. Continue/refill Plaquenil 2. Check labs 3. Follow up in 6 months 4. We gave her a patient education handout on rheumatoid arthritis to take home and review 5. Her arthritis seems well controlled. Her prognosis is good Orders: Comprehensive Metabolic Panel; Future CBC Auto Differential; Future C-reactive Protein; Future Sedimentation Rate; Future Assessment & Plan (03/14/2024 9:03 AM EDT): Medications/treatments/interventions tried include: Tylenol, Plaquenil, Celexa, prednisone. She has seen Dr. Monteiro who is a casket trimmer in [facility] in [facility]. She has seen Dr. Calixto who is a casket trimmer and [facility]. 1. Continue/refill Plaquenil. She does find this helpful. 2. Check labs today. 3. Follow-up in [address] Dunne. 4. Her arthritis is well-controlled and her prognosis 5. Labs reviewed in [facility] on 08/30/2023. Labs were stable other than an elevated sed rate at 40 where 0-32 is normal. She chronically has an elevated sed rate. Resolved Problems Problem Noted Date Diagnosed Date Resolved Date Encounter for monitoring of hydroxychloroquine therapy 03/14/2024 03/19/2025 Assessment & Plan (03/14/2024 9:03 AM EDT): Plaquenil 200 mg p.o. twice daily for rheumatoid arthritis. On this medication the patient needs to have an eye exam at least once a year to monitor for toxicity. No eye complaints today. No recent serious infections. Encounters Date Type Department Care Team Description 09/18/2025 Results Follow-Up [facility] [address] [place] [phone] Marino Dunne DO 09/17/2025 8:45 AM EST Office Visit [facility] [address] [place] [phone] Marino Dunne, Seropositive rheumatoid arthritis (Primary Dx); High risk medication use 09/17/2025 Travel from Last 3 Months Immunizations Immunization Administration Dates Next Due COVID-19 (UNSPECIFIED) 01/27/2021,12/30/2020 Family History Medical History Relation Name Comments Arthritis Brother Arthritis Mother Relation Name Status Comments Brother Mother Social History Tobacco Use Types Packs/Day Years [...] on file Sexual Orientation Not on file Last Filed Vital Signs Vital Sign Reading [...] Mass Index 45.26 09/17/2025 8:50 AM EST Plan of Treatment Upcoming Encounters Date Type Department Care Team (Late st Contact Info) Description 03/18/2026 8:30 AM EDT Office Visit [facility] [address] [phone] Lauri Quijano APRN [address] [address] Health Maintenance Due Date Last Done Comments Annual Gynecologic Pelvic an d Breast Exam 1975 PAP SMEAR 01/15/1996 MAMMOGRAM 2015 COLOGUARD 01/15/2020 COLON CANCER SCREENING 5 YEA R SIGMOIDOSCOPY 01/15/2020 COLONOSCOPY 01/15/2020 COLORECTAL CANCER SCREENING 01/15/2020 CT COLONOGRAPHY 01/15/2020 FECAL OCCULT BLOOD TEST 01/15/2020 FIT Testing (1 year) 01/15/2020 ANNUAL PHYSICAL 03/13/2024 HEPATITIS C SCREENING 03/13/2024 Pneumococcal Vaccine 50+ (1 of 1 - PCV) 2025 ZOSTER VACCINE (1 of 2) 2025 TDAP/TD VACCINES (2 - Td or Tdap) 03/16/2032 022 INFLUENZA VACCINE Completed 09/10/2025, , 08/24/2022 Procedures Procedure Name Priority Date/Time Associated Diagnosis Comments CBC AND DIFFERENTIAL Routine 09/17/2025 9:44 AM EST SEDIMENTATION RATE Routine 09/17/2025 9: 44 AM EST Seropositive rheumatoid arthritis High risk medication use C-REACTIVE PROTEIN Routine 09/17/2025 9: 44 AM EST Seropositive rheumatoid arthritis High risk medication use COMPREHENSIVE METABOLIC PANEL Routine 09/17/2025 9:44 AM EST Seropositive rheumatoid arthritis High risk medication use from Last 3 Months Results * (ABNORMAL) Sedimentation Rate (09/17/2025 9:44 AM EST) Pathologist [facility] Sed Rate 30(H) 0 - 20 mm/hr [facility] Blood 09/17/2025 9:44 AM EST 09/17/2025 Narrative [facility] ([facility]) - 09/18/2025 12:06 AM EST Performed at: [address] [place] [id number] Manager Night: Miko Burgess MD, Phone: [phone] Patient Fasting: N [facility] LAB BLOOD ORDERABLES F inal Result [facility] (AMBULATORY) [address] [place] [address], [facility] [address] [place] [address], * (ABNORMAL) CBC & Differential (09/17/2025 9:44 AM EST) [facility] WBC 6.14 3.40 - 10.80 10*3/mm3 [facility] [...] 09/17/2025 9:44 AM EST 09/17/2025 Narrative [facility] [employer] ([facility]) - 09/18/2025 12:06 AM EST Performed at: [address] [place] [id number] Manager Night: Miko Burgess MD, Phone: [phone] Patient Fasting: N [facility] BLOOD ORDERABLES F inal Result [facility] (AMBULATORY) [address] [place] [address], [facility] [address] [place] [address], [place] [phone] * (ABNORMAL) C-reactive Protein (09/17/2025 9:44 AM EST) [facility] C-Reactive Protein 0.57(H) 0.00 - 0.50 mg/dL [facility] Blood 09/17/2025 9:44 AM EST 09/17/2025 Narrative [facility] ([facility]) - 09/18/2025 12:06 AM EST Performed at: [address] [place] [id number] Manager Night: Miko Burgess MD, Phone: [phone] Patient Fasting: N Marinotylor Dunne DO LAB BLOOD ORDERABLES F inal Result [facility] (AMBULATORY) [address] [place] [address], [facility] [address] [place] [address], * Comprehensive Metabolic Panel (09/17/2025 9:44 AM EST) Glucose 88 65 - 99 mg/dL [facility] [...] - 09/18/2025 12:06 AM EST Performed at: [address] [place] [address] [place] [id number] Manager Night: Miko Burgess MD, Phone: [phone] Patient Fasting: N Marino Dunne DO LAB BLOOD ORDERABLES F inal Result [facility] (AMBULATORY) [address] [place] [address], [facility] [address] [place] [address], from Last 3 Months Insurance PPO Care Teams Cable Armorer Operator Relationship Specialty Start Date End Date David Snell MD [address] [facility] [address] [place] [place] [address] PCP - General Family Medicine 03/14/24
--- OUTSIDE RECORDS SUMMARY | 2025-10-05 09:59 | XMS_ITS | Patient Health Record ---
[facility] Address [address] [facility] [address] [place] [id number] Care Team Providers Care Block Breaker Operator Name Role Phone David Snell Unavailable [phone] Allergies No Known Allergies Results Component Value Reference Range Notes Urinalysis - Inhouse Reviewed date:09/15/2025 04:44:16 PM Interpretation: Performing Lab: Notes/Report: Color/Clarity yellow/clear Leuk 3+ Nitrite neg Urobili 3.2 Protein neg pH 6.5 Blood trace-intact Sp. Gr. 1.030 Ketone neg Bili neg Gluc neg P-Culture, Urine Reviewed date:09/19/2025 12:57:46 PM Interpretation:No Significant Growth Performing Lab: Notes/Report: Test performed by [facility] [address] [place] [address] , [facility] [place] [address] Arvind See MD, Curriculum Supervisor CLIA: [id number] Specimen Source Urine - Void Culture, Urine See Below Final Report : No Significant Growth P-Basic Metabolic Panel (BMP ) Reviewed date:09/11/2025 09:19:59 AM Interpretation:Normal Performing Lab: Notes/Report: Test performed by [facility] [address] [place], [place] [address] , [address], [place] [address] Arvind See MD, Curriculum Supervisor CLIA: [id number] Sodium 141 135-145 mmol/L Potassium 4.2 3.5-5.3 mmol/L Chloride 103 97-108 mmol/L CO2 26 20-32 mmol/L Glucose 93 65-99 mg/dL BUN 10 6-20 mg/dL Creatinine 0.77 0.50-1.00 mg/dL Calcium 8.9 8.6-10.4 mg/dL eGFR by Creatinine 94 >59 mL/min/1.73m2 P-Lipid Panel Reviewed date:09/11/2025 09:19:59 AM Interpretation:Normal Performing Lab: Notes/Report: Test performed by [facility], [address] , [facility], [place] [address] Arvind See MD, Curriculum Supervisor ILEANA: [id number] Lipid Panel Footnote See Below *Based on optimal reference values. Please refer to the DOS for additional information regarding diagnostic lipid reference ranges, patient management based on the recently updated lipid guidelines ([place] [employer]/[place] [employer] Task Force on Clinical Practice Guidelines (2018), and pediatric diagnostic lipid reference values (<18 years old). Total Cholesterol 177 <200 mg/dL Triglycerides 74 <150 mg/dL HDL Cholesterol 67 >50 mg/dL Total Cholesterol / HDL Ratio* 2.64 <3.99 Ratio Non-HDL Cholesterol 110 <130 mg/dL LDL Cholesterol (Calculation) 95 <100 mg/dL LDL / HDL Ratio* 1.42 <1.99 Ratio LDL Cholesterol Patient History Test Date: 08/07/2024 LDL Results: 92 Units: mg/dL % Change: - Test Date: 09/10/2025 LDL Results: 95 Units: mg/dL % Change: +3% P-TSH reflex to FT4 Reviewed date:09/11/2025 09:19:59 AM Interpretation:Normal Performing Lab: Notes/Report: Test performed by [facility] [address] [place] [address] , [address], [place] [address] Arvind See MD, Curriculum Supervisor CLIA: [id number] TSH reflex to FT4 1.50 0.43-5.25 mU/L P-Microalbumin/Creatinine, R andom Urine Sample Reviewed date:09/18/2025 10:02:42 AM Interpretation:Normal Performing Lab: Notes/Report: Test performed by [facility] [address] [place] [address] , [address], [place] [address] Arvind See MD, Curriculum Supervisor CLIA: [id number] Albumin/Creatinine Ratio, Urine 12 0-30 ug/mg Microalbumin, Urine, Random 1.2 Creatinine, Urine 97.6 P-Vitamin D 25-Hydroxy Reviewed date:09/11/2025 09:19:59 AM Interpretation:40.2 Performing Lab: Notes/Report: Test performed by [facility] [address] [place] [address] , [address], [place] [address] Arvind See MD, Curriculum Supervisor CLIA: [id number] Vitamin D 25-Hydroxy 40.2 30.0-100.0 ng/mL Interpretation of Vitamin D 25 [place]: < 20 ng/mL - Deficiency 20 - 29 ng/mL - Insufficiency 30 - 100 ng/mL - Sufficiency > 100 ng/mL - Super-therapeutic- toxicity may occur above this level. Clinical correlation required. Mammogram Reviewed date:04/08/2025 11:27:23 AM Interpretation:Negative Performing Lab: Notes/Report: Negative result negative Reason For Referral No Information Medications Medication SIG (Take, Route, Frequency, Duration) Notes Start Date End Date Status DULoxetine HCl 60 MG Take 1 capsule by m outh once daily; Duration: 90 days Active Wegovy 2.4 MG/0.75ML inject 1 pen inject or subcutaneously once weekly Active Vitamin D3 125 MCG (5000 UT) 1 cap(s) or ally once a day; Duration: 30 day(s) Active Fluticasone Propionate 50 MCG/ACT 1 spray in each nostril Nasally Once a day 07/12/2023 Active Hydroxychloroquine Sulfate 200 MG 1 tab(s) orally bid Active Levocetirizine Dihydrochloride 5 MG 1 tablet in the evening Orally Once a day; Duration: 90 days Active Losartan Potassium 25 MG 1 tab(s) orally once a day; Duration: 90 days Active Immunizations Vaccine Route Administration Date Status Comme nts Tetanus Tdap-Adacel (over 7yrs) Unknown 03/16/2022 Administered Fluzone Quad (6months&older) IM Intramuscular 08/07/2024 Pending Fluzone Quad (6months&older) IM Intramuscular 09/10/2025 Administered Fluzone PF Quad (6-35 months) Unknown 08/24/2022 Administered Problems Problem Type SNOMED Code ICD Code Onset Dates Problem Status W/U Status Risk Notes Problem Vitamin D deficiency (11577199) Vitamin D deficiency (E55.9) Active confirmed Problem Morbid obesity (648071269) Morbid obesity (E66.01) Active confirmed Problem Depressive disorder (83940219) Depressive disorder (F32.9) Active confirmed Problem Mammography abnormal (947357376) Abnormal mammogram of left breast (R92.8) Active confirmed Problem Seasonal allergic rhinitis (725822420) Seasonal allergic rhinitis, unspecified trigger (J30.2) Active confirmed Problem Rheumatoid arthritis (76540939) Rheumatoid arthritis involving multiple sites, unspecified whether rheumatoid factor present (M06.9) Active confirmed Problem Primary hypertension (39133511) Primary hypertension (I10) Active confirmed Vital Signs Heart Rate 88 /min 09/10/2025 Blood pressure diastolic 80 mm Hg 09/10/2025 Height 66 in 09/10/2025 Blood pressure systolic 132 mm Hg 09/10/2025 Weight 290.8 lbs 09/10/2025 BMI 46.93 kg/m2 09/10/2025 Encounters Encounter Location Date Provider Diagnosis [facility] [address] [place], [place] [id number] 03/05/2025 David Snell Primary hypertension I10 ; Seasonal allergic rhinitis, unspecified trigger J30.2 ; Morbid obesity E66.01 ; Vitamin D deficiency E55.9 and Breast cancer screening by mammogram Z12.31 [facility] [address] [facility] [address] [place] [id number] 09/10/2025 David Channing Primary hypertension I10 ; Seasonal allergic rhinitis, unspecified trigger J30.2 ; Vitamin D deficiency E55.9 ; Depressive disorder F32.9 ; Morbid obesity E66.01 and Encounter for immunization Z23 [facility] [address] [facility] [address] [place] [id number] 09/12/2025 David Channing Dysuria R30.0 [facility] [facility] [address] [place] [id number] 09/11/2025 David Snell Assessments Encounter Date Diagnosis (ICD Code) Assessment Notes Treatment Notes Treatment Clinical Notes Section Notes 03/05/2025 Primary hypertension (ICD-10 - I10) 03/05/2025 Seasonal allergic rhinitis, unspecified trigger (ICD-10 - J30.2) 09/10/2025 Seasonal allergic rhinitis, unspecified trigger (ICD-10 - J30.2) 09/10/2025 Primary hypertension (ICD-10 - I10) 09/12/2025 Dysuria (ICD-10 - R30.0) 03/05/2025 Morbid obesity (ICD-10 - E66.01) 09/10/2025 Vitamin D deficiency (ICD-10 - E55.9) 03/05/2025 Vitamin D deficiency (ICD-10 - E55.9) 09/10/2025 Depressive disorder (ICD-10 - F32.9) 03/05/2025 Breast cancer screening by mammogram (ICD-10 - Z12.31) 09/10/2025 Morbid obesity (ICD-10 - E66.01) 09/10/2025 Encounter for immunization (ICD-10 - Z23) Plan Of Treatment Pending Test Test Name Order Date colonoscopy 09/23/2024 Next Appt Details Provider Name:David Matson ry, 03/11/2026 09:00:00 AM, [address] [facility], [address], [place], [id number], Insurance Providers Payer Name Payer Address Payer Phone Subscriber Number Group Number Insured Name Patient Relationship to Insured Coverage Start Date Coverage End Date [facility] [address] [place] [address] [phone] [id number] JONATHAN MADSEN Self - patient is the insured Medical (General) History Medical History History ICD Code Hypertension Allergic Rhinitis Depression Vitamin D Deficiency Rheumatoid Arthritis, Dx: 2013 Surgical History Surgery Date(Month/Year) C section x2 colonoscopy 2024 Hospitalization History Reason Date(Month/Year)
== END 2025-10-02 23:59 | disposition home or self-care (01) ==
LOC: LAB.DROPOF 10-05 09:57
PROVIDERS: PCP Family Medicine; Visit Provider Student in an Organized Health Care Education/Training Program
DX: J06.9 Acute upper respiratory infection, unspecified (principal)
CPT/HCPCS: 87631